=== PATIENT | female | born 1935 | race Caucasian/White ===

== ENCOUNTER 2018-06-03 10:55 | Emergency (ER) | payer MEDICARE, BC ==
--- NOTE | 2018-06-03 11:40 | ED ---
GI/ HPI - HPI Summary HPI Summary: 83F presents with dysuria and hematuria for the past 2 days. She admits to suprapubic pressure. She admits to urgency and frequency. She denies any fevers. No nausea or no vomiting. No flank pain. She does not have a history of kidney stones. She is not on blood thinners. She states she is passing occasional clots. She states she had hematuria back in October and had a full workup for the cystoscope and a CT and they did not find a reason for the bleeding. States at that time she was passing more clots. She states she has not gotten a follow-up with urology for this insistence yet. - History of Current Complaint Chief Complaint: UCGU Time Seen by Provider: 06/03/18 11:22 Stated Complaint: URINARY ISSUE Pain Intensity: 2 - Allergy/Home Medications Allergies/Adverse Reactions: Allergies Allergy/AdvReac Type Severity Reaction Status Date / Time No Known Allergies Allergy Verified 06/03/18 11:12 Home Medications: Home Medications Calcium Carb/Vitamin D3/Vit K1 [Calcium + D Soft Chewable Tab] 1 tab PO DAILY [History Confirmed 06/03/18] Calcium Carbonate [Antacid] 420 mg PO DAILY 06/03/18 [History Confirmed 06/03/18 ] Levothyroxine TAB* [Synthroid 125 MCG TAB*] 1 tab PO DAILY 06/03/18 [History Confirmed 06/03/18] Lisinopril 10 mg PO DAILY 06/03/18 [History Confirmed 06/03/18] Simvastatin TAB(NF) [Zocor 10 MG (NF)] 1 tab PO DAILY 06/03/18 [History Confirmed 06/03/18] PMH/Surg Hx/FS Hx/Imm Hx Endocrine/Hematology History: Reports: Hx Thyroid Disease - on meds Respiratory History: Reports: Other Respiratory Problems/Disorders - TB resolved - Cancer History Cancer Type, Location and Year: breast ca - Surgical History Surgery Procedure, Year, and Place: gallbladder, lung resection for TB. Infectious Disease History: No Infectious Disease History: Denies: Traveled Outside the US in Last 30 Days - Family History Known Family History: Positive: Hypertension - Social History Alcohol Use: None Substance Use Type: Reports: None Smoking Status (MU): Never Smoked Tobacco Review of Systems Negative: Fever Negative: Chest Pain Negative: Shortness Of Breath Positive: Abdominal Pain. Negative: Vomiting, Nausea Positive: dysuria, hematuria. Negative: flank pain All Other Systems Reviewed And Are Negative: Yes Physical Exam Triage Information Reviewed: Yes Vital Signs On Initial Exam: Initial Vitals Temp Pulse Resp BP Pulse Ox 98.7 F 99 18 152/69 100 06/03/18 11:08 06/03/18 11:08 06/03/18 11:08 06/03/18 11:08 06/03/18 11:08 Vital Signs Reviewed: Yes Appearance: Positive: Well-Appearing Skin: Positive: Warm, Dry Head/Face: Positive: Normal Head/Face Inspection Eyes: Positive: Normal, Conjunctiva Clear ENT: Positive: Pharynx normal Respiratory/Lung Sounds: Positive: Clear to Auscultation, Breath Sounds Present Cardiovascular: Positive: Normal, RRR Abdomen Description: Positive: Nontender, Soft. Negative: CVA Tenderness (R), CVA Tenderness (L) Bowel Sounds: Positive: Present Musculoskeletal: Positive: Normal Neurological: Positive: Normal Psychiatric: Positive: Normal Diagnostics - Vital Signs Vital Signs Temp Pulse Resp BP Pulse Ox 06/03/18 11:08 98.7 F 99 18 152/69 100 - Laboratory Lab Results: Lab Results 06/03/18 Range/Units 11:28 POC Urine Color Shah[place] POC Urine Clarity Slightly cloudy POC Urine pH 6.0 (5-9) POC Ur Specif [place] <= 1.005 L (1.010-1.030) POC Urine Protein Trace A (Negative) POC Ur Glucose (UA) Negative (Negative) POC Urine Ketones Negative (Negative) POC Urine Blood 3+ A (Negative) POC Urine Nitrite Negative (Negative) POC Urine Bilirubin Negative (Negative) POC Urine Urobilinogen 0.2 (Negative) POC U Leukocyte Esteras 1+ A (Negative) Lab Statement: Any lab studies that have been ordered have been reviewed, and results considered in the medical decision making process. GIGU Course/Dx - Course Course Of Treatment: 83F presents with dysuria and hematuria for the past 2 days. She admits to suprapubic pressure. She admits to urgency and frequency. She denies any fevers. No nausea or no vomiting. No flank pain. She does not have a history of kidney stones. She is not on blood thinners. She states she is passing occasional clots. She states she had hematuria back in October and had a full workup for the cystoscope and a CT and they did not find a reason for the bleeding. States at that time she was passing more clots. She states she has not gotten a follow-up with urology for this insistence. On exam nontender abdomen. no CVA tenderness. Urine shows a UTI. We'll place on Cipro. We'll have follow-up with urology about blood in urine. will have follow up with primary about blood pressure as is elevated at this time. Patient understands agrees the plan. - Diagnoses Differential Diagnoses - Female: Pyelonephritis, Urinary Tract Infection, Ureteral Calculi Provider Diagnoses: UTI (urinary tract infection), Hematuria Discharge - Sign-Out/Discharge Documenting (check all that apply): Patient Departure - Discharge Plan Condition: Good Disposition: HOME Prescriptions: Ciprofloxacin TAB* [Cipro 500 MG TAB*] 500 mg PO BID #10 tab Patient Education Materials: Urinary Tract Infection in Women (ED) Referrals: Daniel Strickland MD [Primary Care Provider] - Enzo Silva MD [Medical Doctor] - Additional Instructions: Take Cipro twice a day for 5 days Follow up with urology about blood in urine follow up with primary about blood pressure as is elevated at this time. Return to ED if develop fever, flank pain, abdominal pain, vomiting or any new or worsening symptoms - Billing Disposition and Condition Condition: GOOD Disposition: Home
--- NOTE | 2018-06-04 16:27 | UC ---
- Progress Note Progress Note: Treated with cipro for UTI, but culture is negative. Urine sample had 3+ blood. Please ensure that she has a follow up urine sample assessed by her PMD because of the blood in the urine. Course/Dx - Diagnoses Provider Diagnoses: UTI (urinary tract infection), Hematuria Discharge - Sign-Out/Discharge Documenting (check all that apply): Patient Departure - Discharge Plan Condition: Good Disposition: HOME Prescriptions: Ciprofloxacin TAB* [Cipro 500 MG TAB*] 500 mg PO BID #10 tab Patient Education Materials: Urinary Tract Infection in Women (ED) Referrals: Daniel Strickland MD [Primary Care Provider] - Enzo Silva MD [Medical Doctor] - Additional Instructions: Take Cipro twice a day for 5 days Follow up with urology about blood in urine follow up with primary about blood pressure as is elevated at this time. Return to ED if develop fever, flank pain, abdominal pain, vomiting or any new or worsening symptoms - Billing Disposition and Condition Condition: GOOD Disposition: Home
== END 2018-06-03 11:55 | disposition home or self-care (01) ==
LOC: UCEAST 10:55
DX: N39.0 Urinary tract infection, site not specified (principal); R31.9 Hematuria, unspecified; E07.9 Disorder of thyroid, unspecified; R03.0 Elevated blood-pressure reading, without diagnosis of hypertension
CPT/HCPCS: 81003; 87086; 99202; G0463

== ENCOUNTER 2019-03-23 18:15 | Inpatient (IN) | payer MEDICARE, BC ==
--- OUTSIDE RECORDS SUMMARY | 2019-03-23 18:36 | XMS REPORT | Continuity of Care Document ---
:1935 External Reference #:[id number] Author Name Chava Ríos M.D. Address [address] [facility] [place] [address] Care Team Providers Name Role Phone Daniel Strickland M.D. Primary Care Physician Unavailable Payers Date Identification Numbers Payment Provider Subscriber Policy Number: [id number] Medicare - [place] Michelle Ring PayID: [id number] [facility] [address] [place] [address] Policy Number: [id number] [facility] Michelle Ring PayID: [id number] [place] [address] Advance Directives Description No Information Available Problems Active Problems Provider Date Rosacea Onset: H/O: tuberculosis Onset: Gastroesophageal reflux disease Onset: Hypothyroidism Onset: Essential hypertension Onset: Arthritis Onset: Hypercholesterolemia Onset: 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 Onset: 02/27 degeneration Presence of intraocular lens Chava Ríos M.D. Onset: 02/27/2016 Vitreous degeneration Chava Ríos M.D. Onset: 02/27/2016 Nonexudative age-related macular degeneration Chava Ríos M.D. Onset: Family History Date Family Member(s) Observation Comments Father No Current Problems Mother No Current Problems Social History Type Date Description Comments Sex Unknown Marital Status Legal Status: Occupation [employer] Work Status Part-Time Employment ETOH Use Denies alcohol use Tobacco Use Start: Unknown Patient has never smoked Recreational Drug Use Denies Drug Use Smoking Status Reviewed: 03/11/19 Patient has never smoked Allergies, Adverse Reactions, Alerts Active Allergies Reaction Severity Comments Date Pneumovax 11/27/2015 Medications Active Medications SIG Qnty Indications Ordering Provider Date Preservision Areds 2 1 cap by mouth Chava Ríos, 03/02/2018 Areds twice a day M.D. 2 Capsules Aspir-[address] Calcium + D3 Unknown [id number] Tablets Levothyroxine Sodium Unknown 125mcg Tablets Rosuvastatin Calcium Take One Tablet Unknown 10mg By Mouth Every Tablets Day Omeprazole Unknown 20mg Capsules DR Lisinopril Take One Tablet Unknown 10mg Tablets By Mouth Every Day Immunizations Description No Information Available Vital Signs Description No Information Available Results Description No Information Available Procedures Date Code Description Status 03/02/2018 99144 Scanning Computerized Opthalmic Diagnostic Posterior Seg Completed Retina 03/02/2018 48900 Est Patient Comprehensive Exam Completed 02/27/2017 68995 Scanning Computerized Opthalmic Diagnostic Posterior Seg Completed Retina 02/27/2017 14984 Determination Of Refractive State Completed 02/27/2017 75779 Est Patient Comprehensive Exam Completed 02/27/2016 94514 Fundus Photography With Interpretation And Report Completed 02/27/2016 84485 Est Patient Comprehensive Exam Completed 10/01/2013 510 Eye Scrubs 30 Count Completed 09/17/2013 57776 Scanning Computerized Opthalmic Diagnostic Posterior Seg Completed Retina 09/17/2013 03684 Determination Of Refractive State Completed 09/17/2013 43938 Est Patient Comprehensive Exam Completed 08/05/2011 24187 Est Patient Intermediate Exam Completed 06/27/2009 519 Eyeglass Trim Master Operator Completed 06/27/2009 48030 Est Patient Comprehensive Exam Completed 06/27/2009 29269 Determination Of Refractive State Completed 08/05/2007 87114 Extracapsular Cataract Extraction W/Intraocular Lens Completed 07/30/2007 60147 Ophthalmic Biometry Completed 07/29/2007 62519 Extracapsular Cataract Extraction W/Intraocular Lens Completed 07/20/2007 35950 Ophthalmic Biometry Completed 05/19/2007 50091 Est Patient Comprehensive Exam Completed 04/01/2006 21331 Determination Of Refractive State Completed 04/01/2006 66326 Est Patient Comprehensive Exam Completed 12/04/2005 07617 Est Patient Intermediate Exam Completed 03/27/2005 77322 Determination Of Refractive State Completed 03/27/2005 57492 Est Patient Comprehensive Exam Completed 01/15/2005 21594 Rescheduled Appointment Completed 01/08/2005 85057 New Patient Intermediate Exam Completed Encounters Type Date Location Provider Dx Diagnosis Office Visit 10/01/2013 Elsa Tee 372.20 Blepharoconjunctivitis 11:30a MD [place], josesito O.DNik Unspec Office Visit 01/14/2005 Chava Kincaid 373.00 Blepharitis Unspec 9:30a MD [place], josesito Mendez O.D. Plan of Treatment 03/11/2019 - Chava Ríos M.D.[id number] Nonexudative age-related macular degeneration, bilateral, intermediate dry stageComments:Smoking can increase the risk of developing or worsening any eye related disease, as well as affect your overall health. If you are a smoker, we strongly recommend that you quit.If you are not a smoker, we strongly recommend that you do not start. You have Macular Degeneration. Check your Amsler Grid, with each eye separately, and take the AREDS II formula vitamins. If you notice any changes in your vision , please call the office and schedule an appointment to see any of the doctors here.Follow up:1 Year Follow Up Diagnostic Refraction OCT MAC You can expect to have your eyes dilated at your next visit. If Dr. Ríos orders any additional testing, it may require extra time. We recommend that youbring sunglasses, as dilation drops often make you light sensitive until they wear off. We always recommend you bring someone to drive you home if you are uncomfortable driving with your eyes dilated. If you have any questions before your next visit, feel free to call our office at .[phone] Vitreous degeneration, bilateralComments:You have a Posterior Vitreous Detachment. If you have any changes in your floaters or flashing lights, please contact this office.Z96.1 Presence of intraocular lensComments:The artificial lens implants in both eyes appear to be stable at this time.
--- NOTE | 2019-03-23 18:58 | ED ---
GI/ HPI - HPI Summary HPI Summary: Patient is a 84 y/o F presenting to ED with complaints of diarrhea and nausea for the past two weeks. Patient states that she was seen at [facility] two days ago, abdomen x-ray was done, and patient was discharged to home after being hydrated. However, Sx have persistent. She reports that she experiences around 8 episodes of diarrhea daily, describing them as watery. She denies vomiting, abdominal pain, and bloody stools. Patient does note experiencing, "a lot of gurgling", recent weight loss, and decreased appetite. She states she felt chilled last night as well. No Hx of GI issues, patient has had cholecystectomy but otherwise denies abdominal surgeries. She denies Hx of colitis, irritable bowel syndrome, recent travel in the past few months, no recent new antibiotics. Patient notes that she has colonoscopy scheduled. Patient takes medications for HTN, thyroid disease, and HLD. Hx of breast cancer. Patient has never smoked tobacco, denies alcohol and substance usage. She states that her son lives with her and claims that he has been having similar Sx. On triage, pain is denied, it is noted that drinking a lot of fluids aggravates Sx, nothing is noted to alleviate Sx. Home medications and allergies are reviewed. Daughter is present in the room. - History of Current Complaint Chief Complaint: EDNauseaVomitDiarrh Time Seen by Provider: 03/23/19 18:49 Stated Complaint: DIARRHEA/NAUSEA PER PT Hx Obtained From: Patient Onset/Duration: Started Days Ago - chills last night, Started Weeks Ago - two weeks ago, Still Present Timing: Constant - patient reports 8 episodes of diarrhea daily, Lasting Days - chills last night, Lasting Weeks - two weeks ago Current Severity: None - pain denied Pain Intensity: 0 Associated Signs and Symptoms: Positive: Nausea, Diarrhea, Change in Appetite - decreased, Chills, Other: - recent weight loss, experiencing "a lot of gurgling ". Negative: Vomiting, Blood w/Stool, Abdominal Pain Aggravating Factor(s): Liquids Alleviating Factor(s): Nothing - Allergy/Home Medications Allergies/Adverse Reactions: Allergies Allergy/AdvReac Type Severity Reaction Status Date / Time No Known Allergies Allergy Verified 03/23/19 19:07 PMH/Surg Hx/FS Hx/Imm Hx Endocrine/Hematology History: Reports: Hx Thyroid Disease - on meds Cardiovascular History: Reports: Hx Hypertension Respiratory History: Reports: Other Respiratory Problems/Disorders - TB resolved - Cancer History Cancer Type, Location and Year: breast ca - Surgical History Surgery Procedure, Year, and Place: gallbladder, lung resection for TB. Infectious Disease History: No Infectious Disease History: Denies: Traveled Outside the [place] in Last 30 Days - Family History Known Family History: Positive: Hypertension - Social History Alcohol Use: None Substance Use Type: Reports: None Smoking Status (MU): Never Smoked Tobacco Review of Systems Constitutional: Other - POSITIVE - RECENT WEIGHT LOSS Positive: Chills Gastrointestinal: Other - POSITIVE - DECREASED APPETITE, "A LOT OF GURGLING" Positive: Diarrhea, Nausea. Negative: Abdominal Pain, Vomiting Genitourinary: Other - NEGATIVE - BLOOD IN STOOLS All Other Systems Reviewed And Are Negative: Yes Physical Exam - Summary Physical Exam Summary: Appearance: Well-appearing, Well-nourished, lying in bed comfortably Skin: Warm, dry, no obvious rash Eyes: sclera anicteric, no conjunctival pallor ENT: mucous membranes moist, pharynx appears normal Neck: Supple, nontender Respiratory: Clear to auscultation, no signs of respiratory distress Cardiovascular: Normal S1, S2. No murmurs. Normal distal pulses in tibial and radial bilaterally. Abdomen: Soft, nontender, normal active bowel sounds present Musculoskeletal: Normal, Strength/ROM Intact Neurological: A&Ox3, awake and alert, mentation is normal, speech is fluent and appropriate Psychiatric: affect is normal, does not appear anxious or depressed Triage Information Reviewed: Yes Vital Signs On Initial Exam: Initial Vitals Temp Pulse Resp BP Pulse Ox 97.1 F 75 18 111/61 98 03/23/19 18:18 03/23/19 18:18 03/23/19 18:18 03/23/19 18:18 03/23/19 18:18 Vital Signs Reviewed: Yes Diagnostics - Vital Signs Vital Signs Temp Pulse Resp BP Pulse Ox 03/23/19 18:18 97.1 F 75 18 111/61 98 - Laboratory Result Diagrams: 03/24/19 05:11 03/24/19 05:11 Lab Statement: Any lab studies that have been ordered have been reviewed, and results considered in the medical decision making process. - EKG 1943 Cardiac Rate: NL - rate of 74 BPM EKG Rhythm: Sinus Rhythm Summary of EKG Findings: EKG showed sinus rhythm with rate of 74 BPM, LBBB, no iscehmic changes. GIGU Course/Dx - Course Course Of Treatment: Patient is a 84 y/o F presenting to ED with complaints of diarrhea and nausea for the past two weeks. Patient states that she was seen at [facility] two days ago, abdomen x-ray was done, and patient was discharged to home after being hydrated. However, Sx have persistent. She reports that she experiences around 8 episodes of diarrhea daily, describing them as watery. She denies vomiting, abdominal pain, and bloody stools. Patient does note experiencing, "a lot of gurgling", recent weight loss, and decreased appetite. She states she felt chilled last night as well. No Hx of GI issues, patient has had cholecystectomy but otherwise denies abdominal surgeries. She denies Hx of colitis, irritable bowel syndrome, recent travel in the past few months, no recent new antibiotics. Patient notes that she has colonoscopy scheduled. Physical exam is normal. Labs showed WBC 15.5, MCH 32, absolute neuts 9.8, absolute monos 2.1, sodium 132, potassium 3, carbon dioxide 19, BUN 25, creatinine 1.57, glucose 105, lactic acid 1.1, CRP 83.84. EKG showed sinus rhythm with rate of 74 BPM, LBBB, no iscehmic changes. During ED course, patient received fluids, Klor Con Er Tab 40 meq PO ED ONCE ONE, Lomotil 2 tab PO ED ONCE ONE. Patient's case was discussed with Dr. Luna, Dr. Luna accepts the patient for admission. - Diagnoses Provider Diagnoses: Dehydration, Diarrhea, Acute renal insufficiency - Physician Notifications Discussed Care Of Patient With: Martín Luna Time Discussed With Above Provider: 21:40 Instructed by Provider To: Other - Patient's case was discussed with Dr. Luna , Dr. Luna accepts the patient for admission. Discharge - Sign-Out/Discharge Documenting (check all that apply): Patient Departure - admit Patient Received Moderate/Deep Sedation with Procedure: No - Discharge Plan Condition: Stable Disposition: ADMITTED TO [facility] - Billing Disposition and Condition Condition: STABLE Disposition: Admitted to [facility] - Attestation Statements Document Initiated by Scribe: Yes Documenting Scribe: APURVA HALL Provider For Whom Scribe is Documenting (Include Credential): NIKKI PRIDE MD Scribe Attestation: I, APURVA HALL, scribed for NIKKI PRIDE MD on 03/24/19 at 1024. Scribe Documentation Reviewed: Yes Provider Attestation: The documentation as recorded by the [email or web address] accurately reflects the service I personally performed and the decisions made by me, NIKKI PRIDE MD Status of Scribe Document: Viewed
[2019-03-23] MEDS ORDERED: NS 0.9% 1000 ML** 2,000 ML IV ONE (19:00)
[2019-03-23 19:22] LABS: Hematocrit 45 % (35-47); Hemoglobin 15.1 g/dL (12.0-16.0); Mean Corpuscular HGB Conc 34 g/dL (31-36); Mean Corpuscular Hemoglobin 32 pg (27-31); Mean Corpuscular Volume 94 fL (80-97); Mean Platelet Volume 8.9 fL (7.4-10.4); Platelet Count 267 10^3/uL (150-450); Red Blood Count 4.76 10^6 /uL (3.70-4.87); Red Cell Distribution Width 13 % (10.5-15); White Blood Count 15.5 10^3/uL (3.5-10.8)
[2019-03-23 19:39] LABS: Albumin 4.1 g/dL (3.2-5.2); Albumin/Globulin Ratio 1.2 (1-3); BUN/Creatinine Ratio 15.9 (8-20); C Reactive Protein 83.84 mg/L (<8.01); Calcium 9.4 mg/dL (8.6-10.3); EGFR Non-African American 31.4 (>60); Globulin 3.3 g/dL (2-4); Total Bilirubin 0.7 mg/dL (0.2-1.0); Total Protein 7.4 g/dL (6.4-8.9)
[2019-03-23 20:02] LABS: ABS Eosinophils 0.2 10^3/ul (0-0.6); ABS Lymphocytes 3.3 10^3/ul (1.0-4.8); ABS Monocytes 2.1 10^3/ul (0-0.8); ABS Neutrophils 9.8 10^3/ul (1.5-7.7); Eosinophil % 1.4 %; Lymphocyte % 21.3 %; Nucleated Red Blood Cells % 0.1
[2019-03-23] MEDS ORDERED: Potassium Chlor TAB* 20 MEQ TAB.ER PO ONE (20:46)
[2019-03-23] MEDS ORDERED: Diphenoxylat/Atrop 2.5-0.025M* 1 TAB PO ONE (20:47)
[2019-03-23 23:49] LABS: Urine Appearance Cloudy; Urine Bacteria 1+ (Absent); Urine Bilirubin Negative (Negative); Urine Blood Negative (Negative); Urine Color Yellow; Urine Glucose Negative (Negative); Urine Ketones 1+ (Negative); Urine Nitrite Negative (Negative); Urine Protein 1+(30 mg/dL) (Negative); Urine Red Blood Cell Absent (Absent); Urine Specific Gravity 1.019 (1.010-1.030); Urine Squamous Epithelial Cell Present (Absent); Urine Urobilinogen Negative (Negative); Urine White Blood Cell 3+(>20/hpf) (Absent)
[2019-03-24] MEDS ORDERED: Lactated Ringers 1000 ML Bag* 1,000 ML IV ONE (00:14)
--- NOTE | 2019-03-24 01:02 | HP ---
HISTORY AND PHYSICAL: ADDENDUM: PHYSICAL EXAMINATION GENERAL: Well-appearing woman, sitting 45 degrees in bed, interactive, in no apparent distress. HEENT: Oropharynx is clear. She has dry mucous membranes. Her sclerae are anicteric. She has no supraclavicular or cervical lymphadenopathy. LUNGS: Her lungs are clear to auscultation. HEART: Regular rate and rhythm. No murmurs, rubs, or gallops. ABDOMEN: Her abdomen is soft, nontender. Positive bowel sounds in all 4 quadrants. She does have slight firmness in the suprapubic area, periumbilical ; but no tenderness, no rebound, and no distention. EXTREMITIES: Warm and well perfused without clubbing, cyanosis, or edema. NEUROLOGICAL: She is alert and oriented x3. Her cranial nerves II through XII are intact. She has no apparent anxiety, agitation, or depression. [id number]/[facility] #: [id number] MTDD
--- NOTE | 2019-03-24 02:57 | HP ---
ADDENDUM NOW INCLUDED ON THIS REPORT CC: Dr. Strickland * ADMISSION HISTORY AND PHYSICAL: DATE OF ADMISSION: 03/23/19 PRIMARY CARE PROVIDER: Dr. Strickland. HEALTHCARE PROXY: Her daughter, Licha. CODE STATUS: Full. SOURCE OF INFORMATION: History obtained from interview with the patient and review of most recent records from [place]. RELIABILITY: Good. CHIEF COMPLAINT: Diarrhea. HISTORY OF PRESENT ILLNESS: This is an 84-year-old female, who has had 2 weeks of diarrhea that has been intermittent, but gradually worse and "all the time over the last one week." Over the last week, there has been up to 8 bowel movements per day. Many times these are close together. She denies any pain, but endorses a gurgling sensation in her bowels. No blood, no mucus, but the stools are very watery. She endorses decreased appetite and intake and has not been eating much. She denies any vomiting, but does have occasional nausea. The diarrhea does wake her up overnight. She was seen in the emergency room in [place] on 03/21/19. She was seen in [facility] Emergency Room on 03/21/19, at which time it was noted she was unable to produce a stool sample. Her nausea was controlled. She received fluid and Zofran, was discharged home at that time. The diarrhea has continued and for that reason she presented to the emergency room today. Of note, her son has had the similar symptoms with persistent diarrhea for the 1 week prior to presentation today. Also, of note the patient was scheduled for a colonoscopy tomorrow at [place] secondary to changes in her stool caliber. In the emergency room today, she received two Lomotil, potassium, and fluid and her diarrhea has been improved. Also, of note her son's presentation, had included more vomiting. PAST MEDICAL HISTORY: Includes: 1. Hypertension. 2. Hypothyroidism. 3. Hyperlipidemia. 4. History of breast cancer. 5. 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 6. Left bundle branch block. 7. Chronic knee pain. 8. Cholecystectomy. 9. Right partial mastectomy. 10. Lung wedge resection. MEDICATIONS: Home medications include: 1. Synthroid 125 mcg per day. 2. Simvastatin 10 mg daily. 3. Lisinopril 10 mg daily. 4. Calcium carbonate 420 mg daily. 5. Calcium with vitamin D combination tab 1 tab daily. ALLERGIES: No known drug allergies. FAMILY HISTORY: Father with CHF, daughter with breast cancer. SOCIAL HISTORY: Lives with her son. No tobacco, alcohol or illicits. REVIEW OF SYSTEMS: As per HPI, otherwise all other systems negative. PHYSICAL EXAMINATION VITAL SIGNS: In the emergency room, 113/54, heart rate 68, respiratory rate is 19, and 96% on room air. T-max 97.1. DIAGNOSTIC STUDIES/LAB DATA: Laboratory data reviewed. Potassium 3.0, BUN 25 , creatinine 1.57. CRP is 83. White blood cell count is 15.5, which is 62% neutrophils, hemoglobin 15.1, platelets 267. Of note, notable labs from [facility] on 03/21/19 include white blood cell count of 11.5, potassium of 3.3, BUN of 14 , and creatinine is 0.7 as well as a lipase of 301. Data reviewed: EKG left bundle-branch block known. X-ray abdomen series with [facility] from [facility] nonspecific bowel gas pattern. No definite evidence for acute cardiopulmonary disease on that impression. ASSESSMENT AND PLAN: This is an 84-year-old female with two weeks of progressively worse watery diarrhea waking her from her sleep in the setting of son with recent illness down with leukocytosis as well as acute kidney injury, worsening over the last 3 days. 1. Diarrhea associated with hypokalemia, fluids. Improved with Lomotil. Was planned for colonoscopy, will now be postponed. Monitor in the hospital. We will check CT abdomen and pelvis without contrast for further imaging and evaluation. Further plan dictated by these findings. Suspect viral in the setting of son with similar symptoms, elevated CRP and white blood cell count, which is non- neutrophilic. No antibiotics at this time unless otherwise indicated by CAT scan. 2. Acute kidney injury. Received 2 L in the emergency room. Continue another liter of lactated Ringer's at 100 cc per hour. 3. Hypokalemia. Received potassium in the emergency room. Received some additional potassium from lactated Ringers. Check in the morning. 4. Hypertension. Continue home medications. 5. Hypothyroidism. Continue home medications. 6. Hyperlipidemia. Continue home medications. 7. DVT prophylaxis. Heparin subcu in the setting of acute kidney injury. 8. Code status is full code. ADDENDUM: PHYSICAL EXAMINATION GENERAL: Well-appearing woman, sitting 45 degrees in bed, interactive, in no apparent distress. HEENT: Oropharynx is clear. She has dry mucous membranes. Her sclerae are anicteric. She has no supraclavicular or cervical lymphadenopathy. LUNGS: Her lungs are clear to auscultation. HEART: Regular rate and rhythm. No murmurs, rubs, or gallops. ABDOMEN: Her abdomen is soft, nontender. Positive bowel sounds in all 4 quadrants. She does have slight firmness in the suprapubic area, periumbilical ; but no tenderness, no rebound, and no distention. EXTREMITIES: Warm and well perfused without clubbing, cyanosis, or edema. NEUROLOGICAL: She is alert and oriented x3. Her cranial nerves II through XII are intact. She has no apparent anxiety, agitation, or depression. [id number]/CPS #: [id number]/[id number] #: [id number] [facility]
[2019-03-24] MEDS: Heparin VIAL(*) 5000 UNITS/ML VIAL (FIVE THOUSAND) SUBCUT SCH ×3 (05:11→22:13)
[2019-03-24] MEDS: Levothyroxine TAB* 125 MCG TAB PO SCH (05:11)
[2019-03-24 05:49] LABS: Hematocrit 39 % (35-47); Hemoglobin 13.2 g/dL (12.0-16.0); Mean Corpuscular HGB Conc 34 g/dL (31-36); Mean Corpuscular Hemoglobin 32 pg (27-31); Mean Corpuscular Volume 93 fL (80-97); Mean Platelet Volume 10.4 fL (7.4-10.4); Platelet Count 226 10^3/uL (150-450); Red Blood Count 4.19 10^6 /uL (3.70-4.87); Red Cell Distribution Width 14 % (10.5-15); White Blood Count 13.2 10^3/uL (3.5-10.8)
[2019-03-24 06:10] LABS: BUN/Creatinine Ratio 19.8 (8-20); Calcium 8.1 mg/dL (8.6-10.3); EGFR African American 63.2 (>60); EGFR Non-African American 52.2 (>60); Potassium 2.9 mmol/L (3.5-5.0)
[2019-03-24 06:19] LABS: ABS Basophils 0.1 10^3/ul (0-0.2); ABS Eosinophils 0.5 10^3/ul (0-0.6); ABS Lymphocytes 3.1 10^3/ul (1.0-4.8); ABS Monocytes 1.7 10^3/ul (0-0.8); ABS Neutrophils 7.9 10^3/ul (1.5-7.7); Eosinophil % 3.8 %; Lymphocyte % 23.4 %
[2019-03-24] MEDS ORDERED: Potassium Chlor TAB* 20 MEQ TAB.ER PO ONE (08:23)
[2019-03-24] MEDS ORDERED: Lisinopril TAB* 10 MG PO SCH (09:00)
[2019-03-24] MEDS: Atorvastatin* 10 MG TAB PO SCH (09:15)
[2019-03-24 13:56] LABS: Magnesium 1.7 mg/dL (1.9-2.7)
[2019-03-24] MEDS ORDERED: Magnesium Sulfate 2 GM IV* 2 GM/50 ML BAG IVPB ONE (14:42)
[2019-03-24] MEDS ORDERED: NS 0.9% 1000 ML** 1,000 ML IV SCH (14:45)
[2019-03-24] MEDS: KCL 20 MEQ/100 ML IVPREMIX* 20 MEQ/100 ML BAG IV SCH ×2 (15:44→22:13)
--- NOTE | 2019-03-24 20:22 | PN ---
Subjective Date of Service: 03/24/19 Interval History: Continues to c/o nausea and diarrhea. was able to tolerate breakfast this AM. Denies chest pain or shortness of breath. denies abd pain or tenderness. denies fever or chills Family History: Unchanged from Admission Social History: Unchanged from Admission Past Medical History: Unchanged from Admission Objective Active Medications: Acetaminophen (Tylenol Tab*) 650 mg PO Q4H PRN PRN Reason: FEVER/PAIN Atorvastatin Calcium (Lipitor*) 5 mg PO DAILY [facility] Last Admin: 03/24/19 09:15 Dose: 5 mg Diphenoxylate HCl/Atropine (Lomotil Tab*) 1 tab PO BID PRN PRN Reason: DIARRHEA Heparin Sodium (Porcine) (Heparin Vial(*)) 5,000 units SUBCUT Q8HR [facility] Last Admin: 03/24/19 15:45 Dose: 5,000 units Sodium Chloride (Ns 0.9% 1000 Ml) 1,000 mls @ 75 mls/hr IV PER RATE [facility] Stop: 03/25/19 04:04 Last Admin: 03/24/19 15:45 Dose: 75 mls/hr Levothyroxine Sodium (Synthroid Tab*) 125 mcg PO 0600 [facility] Last Admin: 03/24/19 05:11 Dose: 125 mcg Lisinopril (Prinivil Tab*) 10 mg PO DAILY [facility] Last Admin: 03/24/19 09:14 Dose: 10 mg Ondansetron HCl (Zofran Inj*) 4 mg IV Q4H PRN PRN Reason: NAUSEA/VOMITING Vital Signs - 8 hr 03/24/19 03/24/19 16:08 19:23 Temperature 97.5 F 98.2 F Pulse Rate 70 69 Respiratory 20 20 Rate Blood Pressure 119/50 91/38 (mmHg) O2 Sat by Pulse 99 99 Oximetry Oxygen Devices in Use Now: None Appearance: alert, resting in bed , no acute distress Eyes: No Scleral Icterus Ears/Nose/Mouth/Throat: Clear Oropharnyx, Mucous Membranes Moist Neck: NL Appearance and Movements; NL JVP, Trachea Midline Respiratory: Symmetrical Chest Expansion and Respiratory Effort, Clear to Auscultation Cardiovascular: NL Sounds; No Murmurs; No JVD, No Edema Abdominal: NL Sounds; No Tenderness; No Distention Extremities: No Edema, No Clubbing, Cyanosis Skin: No Rash or Ulcers Neurological: Alert and Oriented x 3 Nutrition: Taking PO's Result Diagrams: 03/24/19 05:11 03/24/19 05:11 Microbiology and Other Data: Microbiology 03/23/19 20:04 Stool Gross Appearance - Final Stool C. difficile DNA Amplification - Final 027 Presumptive NEGATIVE Toxigenic C.diff NEGATIVE 03/23/19 20:04 Stool Occult Blood (MARITZA) - Final Stool Assess/Plan/Problems-Billing Assessment: ms reddy is a 84 y.o female that was admitted for diarrhea and - Patient Problems (1) Diarrhea Current Visit: Yes Status: Acute Code(s): R19.7 - DIARRHEA, UNSPECIFIED SNOMED Code(s): 88068220 Comment: - continues to c/o diarrhea - 3 episodes doumented today thus far -stool cultures ordered - suspect this could be viral and son who lives with the patient has recently had simular symptoms (2) Hypokalemia Current Visit: Yes Status: Acute Code(s): E87.6 - HYPOKALEMIA SNOMED Code( s): 27208048 Comment: suspect this is related to diarrhea replaced will repeat bmp in the AM (3) Hypomagnesemia Current Visit: Yes Status: Acute Code(s): E83.42 - HYPOMAGNESEMIA SNOMED Code(s): 682026165 Comment: suspect this is related to diarrhea will replace and repeat level in the AM (4) HTN (hypertension) Current Visit: Yes Status: Acute Code(s): I10 - ESSENTIAL (PRIMARY) HYPERTENSION SNOMED Code(s): 81694259 Comment: going to stop lisinpril do to low normal sbp and continued diarrhea - will resume when status improves (5) Hypothyroid Current Visit: Yes Status: Acute Code(s): E03.9 - HYPOTHYROIDISM, UNSPECIFIED SNOMED Code(s): 77051158 Comment: continue home medications (6) Acute kidney injury Current Visit: Yes Status: Acute Code(s): N17.9 - ACUTE KIDNEY FAILURE, UNSPECIFIED SNOMED Code(s): 71591227 Comment: resolving suspect thisis related to dehydration from diarrhea - IVF given and bun/ creatinine returning to baseline (7) DVT prophylaxis Current Visit: Yes Status: Acute Code(s): Z29.9 - ENCOUNTER FOR PROPHYLACTIC MEASURES, UNSPECIFIED SNOMED Code(s): 553338548 Comment: hsq (8) Full code status Current Visit: Yes Status: Acute Code(s): Z78.9 - OTHER SPECIFIED HEALTH STATUS SNOMED Code(s): 090173559 Status and Disposition: discharge home when medically stable
[2019-03-24] MEDS: Acetaminophen TAB* 325 MG PO PRN (20:26)
[2019-03-24] MEDS: Diphenoxylat/Atrop 2.5-0.025M* 1 TAB PO PRN (20:27)
[2019-03-25] MEDS: Heparin VIAL(*) 5000 UNITS/ML VIAL (FIVE THOUSAND) SUBCUT SCH ×3 (05:19→21:35)
[2019-03-25] MEDS: Levothyroxine TAB* 125 MCG TAB PO SCH (05:20)
[2019-03-25 06:46] LABS: BUN/Creatinine Ratio 15.1 (8-20); Calcium 8.1 mg/dL (8.6-10.3); EGFR African American 91.9 (>60); Magnesium 1.9 mg/dL (1.9-2.7); Potassium 3.6 mmol/L (3.5-5.0)
[2019-03-25] MEDS: Atorvastatin* 10 MG TAB PO SCH (08:43)
[2019-03-25] MEDS ORDERED: Magnesium Oxide TAB* 400 MG PO ONE (12:55)
[2019-03-25] MEDS ORDERED: Potassium Chloride* LIQUID 20 MEQ/15 ML UDC PO ONE (12:55)
[2019-03-25] MEDS ORDERED: cefTRIAXone(*) 1 GM in NS 0.9% 50 ML* 50 ML IVPB SCH (13:00)
--- NOTE | 2019-03-25 18:05 | PN ---
Subjective Date of Service: 03/25/19 Interval History: Continues to have nausea and "burning" in esophagus. Reports she has hx of indigestion like the symptoms she is experiencing now and usually takes TUMS. Denies vomiting. Reports she thinks some of the clear liquids on her tray are aggravating her indigestion. Reports she had a total of 5 stools yesterday and 2 so far this morning. Reports they are still a majority liquid. Denies abd pain unless she feels like she needs to have a BM then she will have some lower abd cramping. Reports son is home with same symptoms and has been having diarrhea for one week. Family History: Unchanged from Admission Social History: Unchanged from Admission Past Medical History: Unchanged from Admission Objective Active Medications: Acetaminophen (Tylenol Tab*) 650 mg PO Q4H PRN PRN Reason: FEVER/PAIN Last Admin: 03/24/19 20:26 Dose: 650 mg Atorvastatin Calcium (Lipitor*) 5 mg PO DAILY [facility] Last Admin: 03/25/19 08:43 Dose: 5 mg Calcium Carbonate (Tums*) 500 mg PO Q4H PRN PRN Reason: INDIGESTION Diphenoxylate HCl/Atropine (Lomotil Tab*) 1 tab PO BID PRN PRN Reason: DIARRHEA Last Admin: 03/24/19 20:27 Dose: 1 tab Heparin Sodium (Porcine) (Heparin Vial(*)) 5,000 units SUBCUT Q8HR [facility] Last Admin: 03/25/19 14:29 Dose: 5,000 units Ceftriaxone Sodium 1 gm/ (Sodium Chloride) 50 mls @ 200 mls/hr IVPB Q24H [facility] Last Admin: 03/25/19 14:28 Dose: 200 mls/hr Levothyroxine Sodium (Synthroid Tab*) 125 mcg PO 0600 [facility] Last Admin: 03/25/19 05:20 Dose: 125 mcg Ondansetron HCl (Zofran Inj*) 4 mg IV Q4H PRN PRN Reason: NAUSEA/VOMITING Vital Signs - 8 hr 03/25/19 15:40 Temperature 98.5 F Pulse Rate 67 Respiratory 24 Rate Blood Pressure 118/49 (mmHg) O2 Sat by Pulse 98 Oximetry Oxygen Devices in Use Now: None Appearance: Comfortable, NAD Eyes: No Scleral Icterus Ears/Nose/Mouth/Throat: Clear Oropharnyx, Mucous Membranes Moist Neck: NL Appearance and Movements; NL JVP Respiratory: Symmetrical Chest Expansion and Respiratory Effort, Clear to Auscultation Cardiovascular: NL Sounds; No Murmurs; No JVD, RRR, No Edema Abdominal: NL Sounds; No Tenderness; No Distention Lymphatic: No Cervical Adenopathy Extremities: No Edema Skin: No Rash or Ulcers Neurological: Alert and Oriented x 3 Nutrition: Taking PO's Result Diagrams: 03/24/19 05:11 03/25/19 06:07 Additional Lab and Data: Laboratory Results - last 24 hr 03/25/19 06:07 Sodium 133 L Potassium 3.6 Chloride 109 Carbon Dioxide 19 L Anion Gap 5 BUN 11 Creatinine 0.73 Est GFR ( Amer) 91.9 Est GFR (Non-Af Amer) 76.0 BUN/Creatinine Ratio 15.1 Glucose 84 Calcium 8.1 L Magnesium 1.9 Microbiology and Other Data: Microbiology 03/23/19 23:37 Urine Culture - Preliminary Urine Escherichia Coli 03/24/19 20:15 Stool Gross Appearance - Final Stool Shiga Toxin I & II - Final Negative Shiga Toxin 1 & 2 03/23/19 20:04 Stool Gross Appearance - Final Stool C. difficile DNA Amplification - Final 027 Presumptive NEGATIVE Toxigenic C.diff NEGATIVE 03/23/19 20:04 Stool Occult Blood (MARITZA) - Final Stool Assess/Plan/Problems-Billing Assessment: ms reddy is a 84 y.o female that was admitted for diarrhea, hypokalemia, and harjit. - Patient Problems (1) Diarrhea Comment: - Continues to c/o diarrhea - 5 episodes yesterday and 2 to 3 so far today. Which is improvement from reported 8 a day on admission - Stool negative for C Diff and Shiga Toxin. Cultures pending. Also negative for blood - Suspect this could be viral and son who lives with the patient has had similar symptoms (2) Indigestion Comment: - TUMS on home med rec, therefore, reordered prn - Diet advanced to soft. (3) Acute kidney injury Comment: - Resolved with IVG - Suspect thisis related to dehydration from diarrhea (4) HTN (hypertension) Comment: - Cont to hold lisinpril due to low normal sbp and continued diarrhea - Resume when status improves (5) Hypokalemia Comment: - Suspect this is related to diarrhea - Replacement provided yesterday and today - Improving. - Repeat bmp in the AM (6) Hypomagnesemia Comment: - Suspect this is related to diarrheaill - Improving with replacement - Repeat level in the AM (7) Hypothyroid Comment: - Cont Synthroid. - TSH added to labs (8) DVT prophylaxis Comment: - SQ Heparin (9) Full code status Status and Disposition: discharge home when medically stable Attending: Olimpia Aparicio
[2019-03-25 18:47] LABS: TSH (Thyroid Stimulating Horm) 36.66 mcIU/mL (0.34-5.60)
[2019-03-25] MEDS: Diphenoxylat/Atrop 2.5-0.025M* 1 TAB PO PRN (21:35)
[2019-03-25] MEDS: Calcium Carbonate CHEW TAB* 500 MG (TUMS) PO PRN (21:35)
[2019-03-26] MEDS: Acetaminophen TAB* 325 MG PO PRN ×2 (03:56→21:12)
[2019-03-26] MEDS: Heparin VIAL(*) 5000 UNITS/ML VIAL (FIVE THOUSAND) SUBCUT SCH ×3 (05:56→21:27)
[2019-03-26] MEDS: Levothyroxine TAB* 125 MCG TAB PO SCH (05:58)
[2019-03-26 06:00] LABS: ABS Basophils 0.1 10^3/ul (0-0.2); ABS Eosinophils 0.4 10^3/ul (0-0.6); ABS Lymphocytes 2.5 10^3/ul (1.0-4.8); ABS Monocytes 1.1 10^3/ul (0-0.8); Eosinophil % 3.5 %; Hematocrit 36 % (35-47); Hemoglobin 12.6 g/dL (12.0-16.0); Lymphocyte % 22.7 %; Mean Corpuscular HGB Conc 35 g/dL (31-36); Mean Corpuscular Hemoglobin 33 pg (27-31); Mean Corpuscular Volume 94 fL (80-97); Mean Platelet Volume 9.3 fL (7.4-10.4); Nucleated Red Blood Cells % 0.1; Platelet Count 246 10^3/uL (150-450); Red Blood Count 3.87 10^6 /uL (3.70-4.87); Red Cell Distribution Width 14 % (10.5-15)
[2019-03-26 06:20] LABS: BUN/Creatinine Ratio 12.5 (8-20); Calcium 8.1 mg/dL (8.6-10.3); EGFR Non-African American 88.4 (>60); Magnesium 1.8 mg/dL (1.9-2.7); Potassium 3.3 mmol/L (3.5-5.0)
[2019-03-26] MEDS ORDERED: Potassium Chlor TAB* 20 MEQ TAB.ER PO ONE (07:20)
[2019-03-26 08:33] LABS: Free T4 0.94 ng/dL (0.61-1.12)
[2019-03-26] MEDS: Magnesium Oxide TAB* 400 MG PO SCH (08:41)
[2019-03-26] MEDS: Atorvastatin* 10 MG TAB PO SCH (08:41)
[2019-03-26] MEDS: Cephalexin CAP* 500 MG PO SCH ×2 (10:30→21:13)
[2019-03-26] MEDS: Calcium Carbonate CHEW TAB* 500 MG (TUMS) PO PRN ×3 (10:30→21:27)
--- NOTE | 2019-03-26 15:37 | PN ---
Subjective Date of Service: 03/26/19 Interval History: Patient reports she continues to have diarrhea but is less frequent and she has noted "stool" in her watery diarrhea. Today she reports some nausea and inability to drink at eat due to nausea. Denies vomiting. Denies fever and chills. Repeats generalized weakness which has been present since symptoms started. Family History: Unchanged from Admission Social History: Unchanged from Admission Past Medical History: Unchanged from Admission Objective Active Medications: Acetaminophen (Tylenol Tab*) 650 mg PO Q4H PRN PRN Reason: FEVER/PAIN Last Admin: 03/26/19 03:56 Dose: 650 mg Atorvastatin Calcium (Lipitor*) 5 mg PO DAILY [facility] Last Admin: 03/26/19 08:41 Dose: 5 mg Calcium Carbonate (Tums*) 500 mg PO Q4H PRN PRN Reason: INDIGESTION Last Admin: 03/26/19 10:30 Dose: 500 mg Cephalexin HCl (Keflex Cap*) 500 mg PO BID [facility] Last Admin: 03/26/19 10:30 Dose: 500 mg Diphenoxylate HCl/Atropine (Lomotil Tab*) 1 tab PO BID PRN PRN Reason: DIARRHEA Last Admin: 03/25/19 21:35 Dose: 1 tab Heparin Sodium (Porcine) (Heparin Vial(*)) 5,000 units SUBCUT Q8HR [facility] Last Admin: 03/26/19 13:44 Dose: 5,000 units Levothyroxine Sodium (Synthroid Tab*) 125 mcg PO 0600 [facility] Last Admin: 03/26/19 05:58 Dose: 125 mcg Magnesium Oxide (Magox 400 Tab*) 400 mg PO DAILY [facility] Last Admin: 03/26/19 08:41 Dose: 400 mg Ondansetron HCl (Zofran Inj*) 4 mg IV Q4H PRN PRN Reason: NAUSEA/VOMITING Vital Signs - 8 hr 03/26/19 03/26/19 08:00 11:03 Temperature 97.3 F Pulse Rate 74 Respiratory 16 17 Rate Blood Pressure 122/51 (mmHg) O2 Sat by Pulse 99 Oximetry Oxygen Devices in Use Now: None Appearance: Comfortable, NAD Eyes: No Scleral Icterus Ears/Nose/Mouth/Throat: Clear Oropharnyx, Mucous Membranes Moist Neck: NL Appearance and Movements; NL JVP Respiratory: Symmetrical Chest Expansion and Respiratory Effort, Clear to Auscultation Cardiovascular: NL Sounds; No Murmurs; No JVD, RRR, No Edema Abdominal: NL Sounds; No Tenderness; No Distention Lymphatic: No Cervical Adenopathy Extremities: No Edema Skin: No Rash or Ulcers Neurological: Alert and Oriented x 3, NL Muscle Strength and Tone Nutrition: Taking PO's Result Diagrams: 03/26/19 05:45 03/26/19 05:45 Additional Lab and Data: Laboratory Results - last 24 hr 03/25/19 03/26/19 03/26/19 06:07 05:45 05:45 WBC 11.0 H RBC 3.87 Hgb 12.6 Hct 36 MCV 94 MCH 33 H MCHC 35 RDW 14 Plt Count 246 MPV 9.3 Neut % (Auto) 63.6 Lymph % (Auto) 22.7 Mcdonald % (Auto) 9.6 Eos % (Auto) 3.5 Baso % (Auto) 0.6 Absolute Neuts (auto) 7.0 Absolute Lymphs (auto) 2.5 Absolute Monos (auto) 1.1 H Absolute Eos (auto) 0.4 Absolute Basos (auto) 0.1 Absolute Nucleated RBC 0.0 Nucleated RBC % 0.1 Sodium 133 L 135 Potassium 3.6 3.3 L Chloride 109 110 Carbon Dioxide 19 L 21 L Anion Gap 5 4 BUN 11 8 Creatinine 0.73 0.64 Est GFR ( Amer) 91.9 107.0 Est GFR (Non-Af Amer) 76.0 88.4 BUN/Creatinine Ratio 15.1 12.5 Glucose 84 101 H Calcium 8.1 L 8.1 L Magnesium 1.9 1.8 L TSH 36.66 H Free T4 0.94 Total T3 44 L Microbiology and Other Data: Microbiology 03/24/19 20:15 Stool Stool Culture - Final 03/24/19 20:15 Stool Stool Gross Appearance - Final 03/24/19 20:15 Stool Shiga Toxin I & II - Final Negative Shiga Toxin 1 & 2 03/23/19 23:37 Urine Urine Culture - Final Escherichia Coli Normal Marija 03/23/19 20:04 Stool Stool Gross Appearance - Final 03/23/19 20:04 Stool C. difficile DNA Amplification - Final 027 Presumptive NEGATIVE Toxigenic C.diff NEGATIVE 03/23/19 20:04 Stool Stool Occult Blood (MARITZA) - Final Assess/Plan/Problems-Billing Assessment: ms reddy is a 84 y.o female that was admitted for diarrhea, hypokalemia, and harjit. - Patient Problems (1) Nausea Comment: - Patient reports nausea today and decrease in PO intake - Suspected secondary to viral illness or acid reflux from not taking home PPI - Home PPI restart - Gentle IVF ordered for overnight. - Change diet to bland - Cont Zofran PRN (2) Diarrhea Comment: - Continues to c/o diarrhea but less frequent and signs of more formed stool noted - Stool negative for C Diff and Shiga Toxin. Cultures no growth. Also negative for blood - Suspect this could be viral and son who lives with the patient has had similar symptoms. She reports today that her daughter who visited recently is reporting same symptoms. (3) Indigestion Comment: - TUMS improved indigestion last evening, but she reports this is not the medication she is use to taking therefore patient's pharmacy called, [facility] rec updated, and home medication (omeprazole) ordered. - Diet advanced to soft. (4) Acute kidney injury Comment: - Resolved with IVF - Suspect thisis related to dehydration from diarrhea (5) HTN (hypertension) Comment: - Cont to hold lisinpril due to low normal sbp and continued diarrhea - Resume when status improves (6) Hypokalemia Comment: - Suspect this is related to diarrhea - Replacement provided - Improving. - Repeat bmp in the AM (7) Hypomagnesemia Comment: - Suspect this is related to diarrhea - Improving with replacement - Repeat level in the AM (8) Hypothyroid Comment: - Cont Synthroid. - TSH elevated at 36.66 - Synthroid increased to 150 mcg. Patient will need repeat TSH in 4 to 6 wks with pcp. (9) DVT prophylaxis Comment: - SQ Heparin (10) Full code status Status and Disposition: discharge home when medically stable Attending: Jose Daniel Mauro
[2019-03-26] MEDS: Pantoprazole TAB * 40 MG TAB PO SCH (16:25)
[2019-03-26] MEDS ORDERED: NS 0.9% 1000 ML** 1,000 ML IV SCH (18:15)
[2019-03-26] MEDS: Diphenoxylat/Atrop 2.5-0.025M* 1 TAB PO PRN (23:47)
[2019-03-27] MEDS: Levothyroxine TAB* 150 MCG TAB PO SCH (05:35)
[2019-03-27] MEDS: Heparin VIAL(*) 5000 UNITS/ML VIAL (FIVE THOUSAND) SUBCUT SCH ×3 (05:35→20:05)
[2019-03-27 07:04] LABS: ABS Basophils 0.1 10^3/ul (0-0.2); ABS Eosinophils 0.5 10^3/ul (0-0.6); ABS Lymphocytes 2.7 10^3/ul (1.0-4.8); ABS Neutrophils 4.9 10^3/ul (1.5-7.7); Eosinophil % 5.2 %; Hematocrit 36 % (35-47); Hemoglobin 12.4 g/dL (12.0-16.0); Lymphocyte % 29.8 %; Mean Corpuscular HGB Conc 34 g/dL (31-36); Mean Corpuscular Hemoglobin 32 pg (27-31); Mean Corpuscular Volume 93 fL (80-97); Nucleated Red Blood Cells % 0.1; Platelet Count 216 10^3/uL (150-450); Red Blood Count 3.86 10^6 /uL (3.70-4.87); Red Cell Distribution Width 13 % (10.5-15); White Blood Count 9.2 10^3/uL (3.5-10.8)
[2019-03-27 07:17] LABS: BUN/Creatinine Ratio 12.3 (8-20); Calcium 8.3 mg/dL (8.6-10.3); EGFR African American 122.3 (>60); Magnesium 1.7 mg/dL (1.9-2.7); Potassium 3.3 mmol/L (3.5-5.0)
[2019-03-27] MEDS: Magnesium Oxide TAB* 400 MG PO SCH (08:06)
[2019-03-27] MEDS: Pantoprazole TAB * 40 MG TAB PO SCH (08:06)
[2019-03-27] MEDS: Cephalexin CAP* 500 MG PO SCH ×2 (08:06→20:04)
[2019-03-27] MEDS: Atorvastatin* 10 MG TAB PO SCH (08:06)
[2019-03-27] MEDS: Ondansetron INJ* 2 MG/ML VIAL IV PRN ×2 (09:40→20:05)
[2019-03-27] MEDS ORDERED: Magnesium Sulfate 2 GM IV* 2 GM/50 ML BAG IVPB ONE (11:43)
[2019-03-27] MEDS ORDERED: Potassium Chloride* LIQUID 20 MEQ/15 ML UDC PO ONE (11:43)
[2019-03-27] MEDS: NS 0.9% 1000 ML** 1,000 ML IV SCH (13:07)
--- NOTE | 2019-03-27 16:08 | PN ---
Subjective Date of Service: 03/27/19 Interval History: Resting in bed on assessment. Reports she is unable to eat today as she does not feel like anything tastes good and everything makes her nauseated. Reports even PO fluids are making her nauseated. She denies vomiting. She reports she also continues to have diarrhea which has increase in frequency since yesterday. Reports she does not feel ready to go home as she will not have help as he son has GI illness also. Family History: Unchanged from Admission Social History: Unchanged from Admission Past Medical History: Unchanged from Admission Objective Active Medications: Acetaminophen (Tylenol Tab*) 650 mg PO Q4H PRN PRN Reason: FEVER/PAIN Last Admin: 03/26/19 21:12 Dose: 650 mg Atorvastatin Calcium (Lipitor*) 5 mg PO DAILY [facility] Last Admin: 03/27/19 08:06 Dose: 5 mg Calcium Carbonate (Tums*) 500 mg PO Q4H PRN PRN Reason: INDIGESTION Last Admin: 03/26/19 21:27 Dose: 500 mg Cephalexin HCl (Keflex Cap*) 500 mg PO BID [facility] Last Admin: 03/27/19 08:06 Dose: 500 mg Heparin Sodium (Porcine) (Heparin Vial(*)) 5,000 units SUBCUT Q8HR [facility] Last Admin: 03/27/19 13:06 Dose: 5,000 units Sodium Chloride (Ns 0.9% 1000 Ml) 1,000 mls @ 75 mls/hr IV PER RATE [facility] Last Admin: 03/27/19 13:07 Dose: 75 mls/hr Levothyroxine Sodium (Synthroid Tab*) 150 mcg PO 0600 [facility] Last Admin: 03/27/19 05:35 Dose: 150 mcg Magnesium Oxide (Magox 400 Tab*) 400 mg PO DAILY [facility] Last Admin: 03/27/19 08:06 Dose: 400 mg Ondansetron HCl (Zofran Inj*) 4 mg IV Q4H PRN PRN Reason: NAUSEA/VOMITING Last Admin: 03/27/19 09:40 Dose: 4 mg Pantoprazole Sodium (Protonix Tab*) 40 mg PO DAILY [facility] Last Admin: 03/27/19 08:06 Dose: 40 mg Vital Signs - 8 hr 03/27/19 11:34 Temperature 98.2 F Pulse Rate 68 Respiratory 18 Rate Blood Pressure 112/45 (mmHg) O2 Sat by Pulse 99 Oximetry Oxygen Devices in Use Now: None Appearance: Comfortable, NAD Eyes: No Scleral Icterus Ears/Nose/Mouth/Throat: Clear Oropharnyx, Mucous Membranes Moist Neck: NL Appearance and Movements; NL JVP Respiratory: Symmetrical Chest Expansion and Respiratory Effort, Clear to Auscultation Cardiovascular: NL Sounds; No Murmurs; No JVD, RRR, No Edema Abdominal: NL Sounds; No Tenderness; No Distention Lymphatic: No Cervical Adenopathy Extremities: No Edema Neurological: Alert and Oriented x 3 Nutrition: - - Decrease in oral intake d/t nausea Result Diagrams: 03/27/19 06:41 03/27/19 06:41 Additional Lab and Data: Laboratory Results - last 24 hr 03/27/19 03/27/19 06:41 06:41 WBC 9.2 RBC 3.86 Hgb 12.4 Hct 36 MCV 93 MCH 32 H MCHC 34 RDW 13 Plt Count 216 MPV 10.0 Neut % (Auto) 53.8 Lymph % (Auto) 29.8 [place] % (Auto) 10.5 Eos % (Auto) 5.2 Baso % (Auto) 0.7 Absolute Neuts (auto) 4.9 Absolute Lymphs (auto) 2.7 Absolute Monos (auto) 1.0 H Absolute Eos (auto) 0.5 Absolute Basos (auto) 0.1 Absolute Nucleated RBC 0.0 Nucleated RBC % 0.1 Sodium 135 Potassium 3.3 L Chloride 111 Carbon Dioxide 22 Anion Gap 2 BUN 7 Creatinine 0.57 Est GFR ( Amer) 122.3 Est GFR (Non-Af Amer) 101.0 BUN/Creatinine Ratio 12.3 Glucose 98 Calcium 8.3 L Magnesium 1.7 L Microbiology and Other Data: Microbiology 03/24/19 20:15 Stool Stool Culture - Final 03/24/19 20:15 Stool Stool Gross Appearance - Final 03/24/19 20:15 Stool Shiga Toxin I & II - Final Negative Shiga Toxin 1 & 2 03/23/19 23:37 Urine Urine Culture - Final Escherichia Coli Normal Marija 03/23/19 20:04 Stool Stool Gross Appearance - Final 03/23/19 20:04 Stool C. difficile DNA Amplification - Final 027 Presumptive NEGATIVE Toxigenic C.diff NEGATIVE 03/23/19 20:04 Stool Stool Occult Blood (MARITZA) - Final Assess/Plan/Problems-Billing Assessment: ms reddy is a 84 y.o female that was admitted for diarrhea, hypokalemia, and harjit. - Patient Problems (1) Liquid stool Comment: - Given increase in frequency again of liquid stool and slightly decreased BS, abd xray completed and unremarkable (2) Nausea Comment: - Patient reports nausea today and decrease in PO intake - Suspected secondary to viral illness or acid reflux from not taking home PPI - Home PPI restarted yesterday - Cont gentle IVF - Change diet from soft to clears - Cont Zofran PRN (3) Diarrhea Comment: - Continues to c/o diarrhea which has increased in frequency again - Stool negative for C Diff and Shiga Toxin. Cultures no growth. Also negative for blood - Suspect this could be viral and son who lives with the patient has had similar symptoms. She reports today that her daughter who visited recently is reporting same symptoms. - Changed Lomotil to Immodium - Discussed outpatient GI consult and colonoscopy as she already had scheduled but needed to cancel due to being here. (4) Indigestion Comment: - Cont Omeprazole - TUMS prn - Change diet from soft to clears (5) Acute kidney injury Comment: - Resolved with IVF - Suspect thisis related to dehydration from diarrhea (6) HTN (hypertension) Comment: - Resume lisinpril tomorrow (ordered) (7) Hypokalemia Comment: - Suspect this is related to diarrhea - Replacement provided - Improving. (8) Hypomagnesemia Comment: - Suspect this is related to diarrhea - Improving with replacement (9) Hypothyroid Comment: - Cont Synthroid. - TSH elevated at 36.66 - Synthroid increased to 150 mcg. Patient will need repeat TSH in 4 to 6 wks with pcp. (10) DVT prophylaxis Comment: - SQ Heparin (11) Full code status Status and Disposition: discharge home when medically stable Attending: Jose Daniel Mauro
[2019-03-27] MEDS: Loperamide CAP* 2 MG PO PRN (20:04)
[2019-03-27] MEDS: Calcium Carbonate CHEW TAB* 500 MG (TUMS) PO PRN (20:04)
[2019-03-27] MEDS: Acetaminophen TAB* 325 MG PO PRN (20:04)
[2019-03-28] MEDS: NS 0.9% 1000 ML** 1,000 ML IV SCH (03:29)
[2019-03-28] MEDS: Levothyroxine TAB* 150 MCG TAB PO SCH (04:06)
[2019-03-28] MEDS: Acetaminophen TAB* 325 MG PO PRN (04:06)
[2019-03-28] MEDS: Loperamide CAP* 2 MG PO PRN ×2 (04:07→08:26)
[2019-03-28] MEDS: Heparin VIAL(*) 5000 UNITS/ML VIAL (FIVE THOUSAND) SUBCUT SCH ×2 (04:08→12:20)
[2019-03-28 07:49] LABS: BUN/Creatinine Ratio 11.3 (8-20); Calcium 7.6 mg/dL (8.6-10.3); EGFR Non-African American 91.7 (>60); Magnesium 1.9 mg/dL (1.9-2.7); Potassium 3.5 mmol/L (3.5-5.0)
[2019-03-28 07:59] VITALS: BP 100/42
[2019-03-28] MEDS: Cephalexin CAP* 500 MG PO SCH (08:25)
[2019-03-28] MEDS: Magnesium Oxide TAB* 400 MG PO SCH (08:25)
[2019-03-28] MEDS: Pantoprazole TAB * 40 MG TAB PO SCH (08:25)
[2019-03-28] MEDS: Atorvastatin* 10 MG TAB PO SCH (08:25)
[2019-03-28] MEDS ORDERED: Lisinopril TAB* 10 MG PO SCH (09:00)
[2019-03-28] MEDS: Ondansetron INJ* 2 MG/ML VIAL IV PRN (12:36)
--- NOTE | 2019-03-29 03:39 | DS ---
CC: Dr. Strickland * DISCHARGE SUMMARY: DATE OF ADMISSION: 03/24/19 DATE OF DISCHARGE: 03/28/19 PRIMARY CARE PROVIDER: Dr. Strickland. ATTENDING PHYSICIAN: Dr. Jose Daniel Mauro * (dictated by Lambert La NP) PRIMARY DIAGNOSES: 1. Diarrhea. 2. Nausea. 3. Acute kidney injury. 4. Hypokalemia. 5. Hypothyroidism. SECONDARY DIAGNOSES: 1. Hypertension. 2. Hyperlipidemia. DISCHARGE HOME MEDICATIONS: Continued Home Medications: 1. Simvastatin 10 mg daily. 2. Lisinopril 10 mg daily. 3. Calcium carbonate 420 mg daily. 4. Calcium with vitamin D combination 1 tab p.o. daily. 5. Omeprazole 20 mg p.o. daily. Changed Home Medications: 1. Synthroid increased from 125 mcg per day to 150 mcg per day. New home medications: 1. Keflex 500 mg p.o. b.i.d. x3 days. 2. Probiotic 1 each p.o. daily. 3. Magnesium oxide 400 mg p.o. daily. 4. Zofran ODT 4 mg p.r.n. HISTORY OF PRESENT ILLNESS/HOSPITAL COURSE: Mrs. Ring is a 84-year-old female with past medical history significant for hypertension, hypothyroid, hyperlipidemia, breast cancer; who presented to the emergency department on with diarrhea and weakness. While in the emergency room, the patient was noted to have an elevated CRP and WBC. She was also noted to have elevated creatinine, and hypokalemia. Given these findings the patient was admitted for further evaluation and treatment. During this hospital stay, the patient received IV fluid replacement and acute kidney injury resolved as her creatinine is now baseline. She also had a urine culture, which revealed E. coli and received appropriate antibiotics. Her electrolytes will be placed, including potassium and magnesium, both of which are now within normal limits. She continued to have diarrhea during her hospital stay, but it became less frequent and less severe. The patient also started to have some nausea during her hospital stay, but we suspect this is secondary to the viral gastroenteritis in addition to the fact that the patient was not taking her omeprazole from home. Today, 03/28/19 the patient is taking an adequate liquid p.o. The patient's vitals have improved. The patient was able to ambulate in the unit without difficulty. The patient's vital signs are stable. The patient is stable for discharge home. REVIEW OF SYSTEMS: The patient continues to have mild nausea at times. The patient reports diarrhea. The patient denies abdominal pain, fever, chills, weakness, shortness of breath, chest pain, palpitations. A 14 point review of systems was completed, all are negative. PHYSICAL EXAM: General: Mrs. Ring is an 84-year-old female who is sitting in the chair, appears to be in no acute distress, appears stated age. Vital Signs: Temp 97.9, HR 76, RR 16, O2 saturation 97% on room air, BP 100/42. HEENT : PERRLA. EOMs intact. Oral mucosa is moist without lesion. Posterior pharynx is clear. Neck: Supple. No lymphadenopathy. Cardiac: S1, S2 present. No murmurs, rubs or gallops. Regular rate and rhythm. Respiratory: Lungs are clear to auscultation. Good aeration. No wheezes, rhonchi or rubs. Abdomen: Soft, nontender. Bowel sounds are normoactive. Abdomen is nondistended. No pain to palpation of bilateral inguinal area. Extremities: No clubbing or cyanosis. No edema. Pedal pulses 2+ bilaterally. Extremities: No muscle or joint pain. Skin: Skin is grossly intact. Neuro: Neuro exam is grossly intact with no focal deficits or weakness. DIAGNOSTIC STUDIES/LAB DATA: WBC 9.2, hemoglobin 12.4, hematocrit 36, platelet 216. Sodium 136, potassium 3.5, chloride 112, carbon dioxide 21, BUN 7, creatinine 0.62. TSH 36.66, free T4 is 0.94, total T3 44. DISCHARGE PLAN/FOLLOWUP: 1. Diarrhea: As mentioned above we suspect the patient's diarrhea is secondary to viral gastroenteritis. The patient had abdominal imaging of an abdominal CT and abdominal x-ray, which were unremarkable for an acute process. It should be noted that the patient does have a small right inguinal hernia containing a segment of small bowel with no strangulation or obstruction. This area was nontender to palpation. Discussed signs and symptoms of worsening condition with the patient, she stated understanding. As for diarrhea, the patient should continue clear diet and advance to a BRAT diet. The patient to continue Imodium as needed. The patient to continue probiotic. 2. Nausea: As mentioned above the patient does report occasional nausea. She is able to take adequate p.o. liquid. Discussed continuing clear liquid diet and advancing to BRAT as tolerated. The patient was provided with a Zofran prescription. The patient should continue her PPIs as this could be exacerbating in the nausea. The patient should continue Tums as needed as that was helpful here in the hospital. 3. Acute kidney injury: As mentioned above, the patient did have acute kidney injury on admission, which has resolved. 4. Hypothyroid: During this admission the patient did had a TSH which was elevated at 36.66. This could be due to a true hypothyroid state or sick thyroid. Either way, given the height of elevation I have increased her Synthroid from 125 mcg daily to 150 mcg daily. I have encouraged her to follow up with primary care in 4 to 6 week for repeat TSH. 5. Electrolyte imbalance: During this stay the patient required replacement of potassium and magnesium. Both of which are at this time within normal limits. I would recommend the patient follow up the primary care next week for a repeat BMP. 6. Hypertension: The patient should continue her lisinopril. 7. Hyperlipidemia: The patient should continue her statin. 8. Followup: As mentioned above, the patient should follow with her primary care next week for a repeat BMP and repeat a TSH in 4 to 6 weeks. The patient also had a scheduled colonoscopy that had to be canceled as she presented to the emergency room. I encouraged the patient to follow up with her primary care and discussed having this rescheduled at a later time. 9. Education: The patient was educated on signs and symptoms of new worsening condition and when to return to the near emergency department, the patient stated understanding. This is a summarized report of a complex medical history and hospital stay. For further details please see the entire medical record. TIME SPENT: Approximately 45 minutes were spent on this discharge, greater than half of that spent face to face with the patient discussing discharge plans and instructions. LAMBERT LA, MACHO [id number]/[facility] #: [id number] RADHA
== END 2019-03-28 15:00 | disposition home or self-care (01) | DRG 392 ==
LOC: ED 18:15 → MEDTELE 03-24 00:16 → MED 03-25 23:55 → OBSVTOIN 03-26 16:00
PROVIDERS: ADMIT Internal Medicine; ATTEND Internal Medicine
DX: A08.4 Viral intestinal infection, unspecified (principal); N17.9 Acute kidney failure, unspecified; N39.0 Urinary tract infection, site not specified; E03.9 Hypothyroidism, unspecified; E83.42 Hypomagnesemia; E87.6 Hypokalemia; I10 Essential (primary) hypertension; E78.5 Hyperlipidemia, unspecified; I44.7 Left bundle-branch block, unspecified; M25.569 Pain in unspecified knee; R11.0 Nausea; K30 Functional dyspepsia; Z85.3 Personal history of malignant neoplasm of breast; B96.20 Unspecified Escherichia coli [E. coli] as the cause of diseases classified elsewhere; Z86.11 Personal history of tuberculosis; Z79.899 Other long term (current) drug therapy; Z82.49 Family history of ischemic heart disease and other diseases of the circulatory system; Z80.3 Family history of malignant neoplasm of breast
CPT/HCPCS: 36415; 74019; 74176; 80048; 80053; 81003; 81015; 82272; 83605; 83735; 84439; 84443; 84479; 85025; 86140; 87045; 87046; 87077; 87086; 87186; 87493; 87899; 93005; 99284; A9270-GY; G0378; G8978-GP-CI; G8979-GP-CI; G8980-GP-CI; J0696; J1644; J2405; J3475; J3480

== ENCOUNTER → 2019-04-01 09:23 | Emergency (ER) | payer MEDICARE, BC ==
[~2019-04-01 09:23] MED LIST: NS 0.9% 1000 ML** 1,000 ML IV ONE; Potassium Chlor TAB* 20 MEQ TAB.ER PO ONE
[2019-04-01 10:21] LABS: ABS Basophils 0.1 10^3/ul (0-0.2); ABS Eosinophils 0.1 10^3/ul (0-0.6); ABS Lymphocytes 2.3 10^3/ul (1.0-4.8); ABS Monocytes 1.3 10^3/ul (0-0.8); ABS Neutrophils 7.5 10^3/ul (1.5-7.7); Eosinophil % 1.3 %; Hematocrit 41 % (35-47); Hemoglobin 13.6 g/dL (12.0-16.0); Lymphocyte % 20.4 %; Mean Corpuscular HGB Conc 33 g/dL (31-36); Mean Corpuscular Hemoglobin 31 pg (27-31); Mean Corpuscular Volume 94 fL (80-97); Mean Platelet Volume 9.6 fL (7.4-10.4); Nucleated Red Blood Cells % 0.2; Platelet Count 284 10^3/uL (150-450); Red Blood Count 4.33 10^6 /uL (3.70-4.87); Red Cell Distribution Width 14 % (10.5-15); White Blood Count 11.3 10^3/uL (3.5-10.8)
--- NOTE | 2019-04-01 10:36 | ED ---
GI/ HPI - HPI Summary HPI Summary: This patient is an 84 year old female presenting to [facility] with a chief complaint of decreased appetite. The patient was recently seen here for a stomach viral syndrome and is now saying it is impossible for her to drink and she has drank very little. She states she has been urinating very little and is concerned about this. She last urinated this morning but emphasized that it was a small amount of urine. She reports edema in her bilateral lower extremities. She states she has not felt any better since she left the hospital. Pt denies any fever, chills, erythema of eyes, sore throat, CP, SOB, cough, abdominal pain , N/V, dysuria, hematuria, myalgia, rash, or dizziness. - History of Current Complaint Chief Complaint: EDGeneral Time Seen by Provider: 04/01/19 09:29 Stated Complaint: ABD PAIN PER PT Hx Obtained From: Patient Onset/Duration: Started Days Ago Timing: Constant Pain Intensity: 0 - Additional Pertinent History Primary Care Physician: [id number] - Allergy/Home Medications Allergies/Adverse Reactions: Allergies Allergy/AdvReac Type Severity Reaction Status Date / Time No Known Allergies Allergy Verified 04/01/19 09:27 Home Medications: Home Medications Lisinopril TAB* [Prinivil TAB*] 10 mg PO DAILY 04/01/19 [History Confirmed 04/01] Loperamide CAP* [Imodium CAP*] 2 mg PO Q6HR PRN 04/01/19 [History Confirmed ] Omeprazole CAP (NF) [Prilosec CAP* 20 MG] 20 mg PO DAILY 04/01/19 [History Confirmed 04/01/19] PMH/Surg Hx/FS Hx/Imm Hx Endocrine/Hematology History: Reports: Hx Thyroid Disease - on meds Cardiovascular History: Reports: Hx Hypertension Respiratory History: Reports: Other Respiratory Problems/Disorders - TB resolved , APPROX AGE 24 Sensory History: Reports: Hx Contacts or Glasses Denies: Hx Hearing Aid Opthamlomology History: Reports: Hx Contacts or Glasses - Cancer History Cancer Type, Location and Year: breast ca - Surgical History Surgery Procedure, Year, and Place: gallbladder, lung resection for TB. Infectious Disease History: No Infectious Disease History: Denies: Traveled Outside the [place] in Last 30 Days - Family History Known Family History: Positive: Hypertension - Social History Alcohol Use: None Substance Use Type: Reports: None Smoking Status (MU): Never Smoked Tobacco Review of Systems Negative: Fever, Chills Negative: Erythema Negative: Sore Throat Negative: Chest Pain Negative: Shortness Of Breath, Cough Negative: Abdominal Pain, Vomiting, Nausea Negative: dysuria, hematuria Positive: Edema. Negative: Myalgia Negative: Rash Neurological: Other - Neg: Dizziness All Other Systems Reviewed And Are Negative: No Physical Exam - Summary Physical Exam Summary: Constitutional: Well-developed, Well-nourished, Alert. (-) Distressed Skin: Warm, Dry HENT: Normocephalic; Atraumatic Eyes: Conjunctiva normal Neck: Musculoskeletal ROM normal neck. (-) JVD, (-) Stridor, (-) Tracheal deviation Cardio: Rhythm regular, rate normal, Heart sounds normal; Intact distal pulses; The pedal pulses are 2+ and symmetric. Radial pulses are 2+ and symmetric. (-) Murmur Pulmonary/Chest wall: Effort normal. (-) Respiratory distress, (-) Wheezes, (+) Crackles on the left side. Abd: Soft, (-) tenderness, (-) Distension, (-) Guarding, (-) Rebound Musculoskeletal: (+) Trace Edema in bilateral lower extremities. Lymph: (-) Cervical adenopathy Neuro: Alert, Oriented x3 Psych: Mood and affect Normal Triage Information Reviewed: Yes Vital Signs On Initial Exam: Initial Vitals Temp Pulse Resp BP Pulse Ox 98.3 F 80 19 111/69 97 04/01/19 09:24 04/01/19 09:24 04/01/19 09:24 04/01/19 09:24 04/01/19 09:24 Vital Signs Reviewed: Yes Diagnostics - Vital Signs Vital Signs Temp Pulse Resp BP Pulse Ox 04/01/19 09:24 98.3 F 80 19 111/69 97 - Laboratory Lab Results: Lab Results 04/01/19 Range/Units 09:53 WBC 11.3 H (3.5-10.8) 10^3/uL RBC 4.33 (3.70-4.87) 10^6 /uL Hgb 13.6 (12.0-16.0) g/dL Hct 41 (35-47) % MCV 94 (80-97) fL MCH 31 (27-31) pg MCHC 33 (31-36) g/dL RDW 14 (10.5-15) % Plt Count 284 (150-450) 10^3/uL MPV 9.6 (7.4-10.4) fL Neut % (Auto) 66.5 % Lymph % (Auto) 20.4 % [place] % (Auto) 11.1 % Eos % (Auto) 1.3 % Baso % (Auto) 0.7 % Absolute Neuts (auto) 7.5 (1.5-7.7) 10^3/ul Absolute Lymphs (auto) 2.3 (1.0-4.8) 10^3/ul Absolute Monos (auto) 1.3 H (0-0.8) 10^3/ul Absolute Eos (auto) 0.1 (0-0.6) 10^3/ul Absolute Basos (auto) 0.1 (0-0.2) 10^3/ul Absolute Nucleated RBC 0.0 10^3/ul Nucleated RBC % 0.2 Result Diagrams: 04/01/19 09:53 04/01/19 09:53 Lab Statement: Any lab studies that have been ordered have been reviewed, and results considered in the medical decision making process. - Radiology CXR Radiology Interpretation Completed By: Radiologist Summary of Radiographic Findings: Small left pleural effusion. ED Provider has reviewed this report. - EKG 0940 Cardiac Rate: NL EKG Rhythm: Sinus Rhythm - [address] Segment: Normal Summary of EKG Findings: No STEMI GIGU Course/Dx - Course Course Of Treatment: This patient is an 84 year old female presenting to [facility] with a chief complaint of decreased appetite. CXR was remarkable for a small left pleural effusion. Labs are nonactionable. No evidence for acute coronary syndrome. Patient feels better and is ambulatory in the ED. Encouraged increased caloric intake. Plan for discharge and follow up with PCP was discussed with the patient and the patient was agreeable with this plan. - Diagnoses Provider Diagnoses: Weakness, Pleural effusion, left Discharge - Sign-Out/Discharge Documenting (check all that apply): Patient Departure - Discharge Patient Received Moderate/Deep Sedation with Procedure: No - Discharge Plan Condition: Stable Disposition: HOME Patient Education Materials: Weakness (ED), Pleural Effusion (ED) Referrals: [facility] [Outside] - 2 Days Additional Instructions: Increase caloric intake. Follow up with [facility] in 2 days. Return to ED with any new or worsening symptoms. - Attestation Statements Document Initiated by Scribe: Yes Documenting Scribe: Martín Anderson Provider For Whom Scribe is Documenting (Include Credential): Gregor Doherty MD Scribe Attestation: IMartín, scribed for Gregor Doherty MD on 04/01/19 at 1505. Status of Scribe Document: Ready
[2019-04-01 10:38] LABS: Albumin/Globulin Ratio 1.1 (1-3); BUN/Creatinine Ratio 8.2 (8-20); Calcium 8.5 mg/dL (8.6-10.3); EGFR African American 91.9 (>60); Globulin 2.7 g/dL (2-4); Potassium 3.2 mmol/L (3.5-5.0); Total Bilirubin 0.5 mg/dL (0.2-1.0); Total Protein 5.7 g/dL (6.4-8.9)
[2019-04-01 10:39] LABS: Troponin I 0.01 ng/mL (<0.04)
[2019-04-01 11:09] LABS: Free T4 1.09 ng/dL (0.61-1.12)
[2019-04-01 12:57] LABS: Urine Appearance Clear; Urine Bacteria 1+ (Absent); Urine Bilirubin Negative (Negative); Urine Blood 1+ (Negative); Urine Color Straw; Urine Glucose Negative (Negative); Urine Ketones Negative (Negative); Urine Nitrite Negative (Negative); Urine Protein Negative (Negative); Urine Red Blood Cell Trace(0-2/hpf) (Absent); Urine Specific Gravity 1.004 (1.010-1.030); Urine Urobilinogen Negative (Negative); Urine White Blood Cell Trace(0-5/hpf) (Absent)
[2019-04-01 15:01] LABS: Troponin I 0.02 ng/mL (<0.04)
[2019-04-01 15:32] LABS: TSH (Thyroid Stimulating Horm) 44.25 mcIU/mL (0.34-5.60)
[2019-04-01 15:46] VITALS: BP 130/61
== END | disposition home or self-care (01) ==
LOC: ED 09:23
DX: R53.1 Weakness (principal); J90 Pleural effusion, not elsewhere classified; I10 Essential (primary) hypertension; E07.9 Disorder of thyroid, unspecified; R94.31 Abnormal electrocardiogram [ECG] [EKG]; Z85.3 Personal history of malignant neoplasm of breast; Z88.8 Allergy status to other drugs, medicaments and biological substances; Z79.899 Other long term (current) drug therapy
CPT/HCPCS: 36415; 71045; 80053; 81003; 81015; 83605; 83880; 84439; 84443; 84484; 85025; 87086; 93005; 99283; A9270-GY

== ENCOUNTER 2019-04-03 13:57 | Emergency (ER) | payer MEDICARE, BC ==
[2019-04-03 19:16] LABS: ABS Basophils 0.1 10^3/ul (0-0.2); ABS Eosinophils 0.2 10^3/ul (0-0.6); ABS Lymphocytes 3.1 10^3/ul (1.0-4.8); ABS Monocytes 1.3 10^3/ul (0-0.8); ABS Neutrophils 7.8 10^3/ul (1.5-7.7); ABS Nucleated RBC 0.1 10^3/ul; Eosinophil % 1.7 %; Hematocrit 44 % (35-47); Hemoglobin 14.4 g/dL (12.0-16.0); Lymphocyte % 24.5 %; Mean Corpuscular HGB Conc 33 g/dL (31-36); Mean Corpuscular Hemoglobin 32 pg (27-31); Mean Corpuscular Volume 96 fL (80-97); Mean Platelet Volume 9.5 fL (7.4-10.4); Nucleated Red Blood Cells % 0.7; Platelet Count 244 10^3/uL (150-450); Red Blood Count 4.57 10^6 /uL (3.70-4.87); Red Cell Distribution Width 15 % (10.5-15); White Blood Count 12.5 10^3/uL (3.5-10.8)
[2019-04-03 19:23] LABS: Albumin 3.1 g/dL (3.2-5.2); Albumin/Globulin Ratio 1.1 (1-3); BUN/Creatinine Ratio 12.5 (8-20); C Reactive Protein 3.9 mg/L (<8.01); Calcium 8.6 mg/dL (8.6-10.3); EGFR African American 93.4 (>60); EGFR Non-African American 77.2 (>60); Globulin 2.9 g/dL (2-4); Potassium 3.6 mmol/L (3.5-5.0); Total Bilirubin 0.5 mg/dL (0.2-1.0)
[2019-04-03 21:01] LABS: Urine Appearance Cloudy; Urine Bacteria 1+ (Absent); Urine Bilirubin Negative (Negative); Urine Blood 1+ (Negative); Urine Color Yellow; Urine Glucose Negative (Negative); Urine Ketones 1+ (Negative); Urine Nitrite Negative (Negative); Urine Protein Negative (Negative); Urine Red Blood Cell 2+(6-10/hpf) (Absent); Urine Specific Gravity 1.017 (1.010-1.030); Urine Squamous Epithelial Cell Present (Absent); Urine Urobilinogen Negative (Negative); Urine White Blood Cell 3+(>20/hpf) (Absent)
[2019-04-03] MEDS ORDERED: Furosemide TAB* 20 MG PO ONE (23:05)
--- NOTE | 2019-04-03 23:09 | ED ---
Lower Extremity - HPI Summary HPI Summary: Patient complains of bilateral lower extremity edema x days, and decreased urine output. Patient seen here for same symptoms on 04/01/19. Discharge with recommendation to follow-up with primary care. Chest x-ray positive for small pleural effusion. Patient denies fever, cough, sore throat, CP, SOB, N/V/D, abdominal pain, change in BM M. Medical history is HTN, hypothyroid. Recently admitted to [facility] [place] ER for diarrhea x 2 days. States she has been less active since discharge on 03/26/19. - History of Current Complaint Chief Complaint: EDGeneral Stated Complaint: RETAINING FLUID/GASTRIC PROBLEMS PER PT Time Seen by Provider: 04/03/19 18:37 Hx Obtained From: Patient Mechanism Of Injury: Unknown Onset of Pain: Days Severity Currently: None Pain Intensity: 0 Pain Scale Used: 0-10 Numeric Associated Signs And Symptoms: Positive: Swelling Aggravating Factor(s): Nothing - Allergies/Home Medications Allergies/Adverse Reactions: Allergies Allergy/AdvReac Type Severity Reaction Status Date / Time No Known Allergies Allergy Verified 04/03/19 14:05 PMH/Surg Hx/FS Hx/Imm Hx Endocrine/Hematology History: Reports: Hx Thyroid Disease - on meds Cardiovascular History: Reports: Hx Hypertension Respiratory History: Reports: Other Respiratory Problems/Disorders - TB resolved , [facility]PROX AGE 24 Sensory History: Reports: Hx Contacts or Glasses Denies: Hx Hearing Aid Opthamlomology History: Reports: Hx Contacts or Glasses EENT History: Denies: Hx Deafness Neurological History: Denies: Hx Dementia Psychiatric History: Denies: Hx Autism - Cancer History Cancer Type, Location and Year: breast ca - Surgical History Surgery Procedure, Year, and Place: gallbladder, lung resection for TB. Infectious Disease History: No Infectious Disease History: Denies: Traveled Outside the [place] in Last 30 Days - Family History Known Family History: Positive: Hypertension - Social History Alcohol Use: None Substance Use Type: Reports: None Smoking Status (MU): Never Smoked Tobacco Review of Systems Constitutional: Negative Eyes: Negative ENT: Negative Cardiovascular: Negative Respiratory: Negative Gastrointestinal: Negative Positive: other Musculoskeletal: Negative Skin: Negative Neurological: Negative Psychological: Normal All Other Systems Reviewed And Are Negative: Yes Physical Exam - Summary Physical Exam Summary: Mild bilateral nonpitting swelling edema to bilateral lower extremities. No erythema, ecchymosis, deformity, extra warmth noted. Calves soft nontender bilaterally. PMS intact distally on bilateral lower extremities. Lung sounds clear to auscultation bilaterally. Abdomen soft nontender. RRR. Triage Information Reviewed: Yes Vital Signs On Initial Exam: Initial Vitals Temp Pulse Resp BP Pulse Ox 98.5 F 96 16 114/66 96 04/03/19 14:00 04/03/19 14:00 04/03/19 14:00 04/03/19 14:00 04/03/19 14:00 Vital Signs Reviewed: Yes Appearance: Positive: Well-Appearing Skin: Positive: Warm Head/Face: Positive: Normal Head/Face Inspection Eyes: Positive: Normal Neck: Positive: Supple Respiratory/Lung Sounds: Positive: Clear to Auscultation Cardiovascular: Positive: Normal Abdomen Description: Positive: Nontender Musculoskeletal: Positive: Normal Neurological: Positive: Normal Psychiatric: Positive: Normal AVPU Assessment: Alert - [place] Coma Scale Best Eye Response: 4 - Spontaneous Best Motor Response: 6 - Obeys Commands Best Verbal Response: 5 - Oriented Coma Scale Total: 15 Diagnostics - Vital Signs Vital Signs Temp Pulse Resp BP Pulse Ox 04/03/19 19:15 78 136/73 96 04/03/19 19:07 75 97 04/03/19 18:16 92 94 04/03/19 18:15 71 149/70 96 04/03/19 17:32 97.7 F 82 16 119/63 100 04/03/19 15:31 97.8 F 87 20 107/54 99 04/03/19 14:00 98.5 F 96 16 114/66 96 - Laboratory Lab Results: Lab Results 04/03/19 04/03/19 04/03/19 Range/Units 18:56 18:56 20:50 WBC 12.5 H (3.5-10.8) 10^3/uL RBC 4.57 (3.70-4.87) 10^6 /uL Hgb 14.4 (12.0-16.0) g/dL Hct 44 (35-47) % MCV 96 (80-97) fL MCH 32 H (27-31) pg MCHC 33 (31-36) g/dL RDW 15 (10.5-15) % Plt Count 244 (150-450) 10^3/uL MPV 9.5 (7.4-10.4) fL Neut % (Auto) 62.4 % Lymph % (Auto) 24.5 % [place] % (Auto) 10.8 % Eos % (Auto) 1.7 % Baso % (Auto) 0.6 % Absolute Neuts (auto) 7.8 H (1.5-7.7) 10^3/ul Absolute Lymphs (auto) 3.1 (1.0-4.8) 10^3/ul Absolute Monos (auto) 1.3 H (0-0.8) 10^3/ul Absolute Eos (auto) 0.2 (0-0.6) 10^3/ul Absolute Basos (auto) 0.1 (0-0.2) 10^3/ul Absolute Nucleated RBC 0.1 10^3/ul Nucleated RBC % 0.7 Sodium 136 (135-145) mmol/L Potassium 3.6 (3.5-5.0) mmol/L Chloride 104 (101-111) mmol/L Carbon Dioxide 26 (22-32) mmol/L Anion Gap 6 (2-11) mmol/L BUN 9 (6-24) mg/dL Creatinine 0.72 (0.51-0.95) mg/dL Est GFR ( Amer) 93.4 (>60) Est GFR (Non-Af Amer) 77.2 (>60) BUN/Creatinine Ratio 12.5 (8-20) Glucose 92 (70-100) mg/dL Calcium 8.6 (8.6-10.3) mg/dL Total Bilirubin 0.50 (0.2-1.0) mg/dL AST 42 H (13-39) U/L ALT 25 (7-52) U/L Alkaline Phosphatase 100 (34-104) U/L C-Reactive Protein 3.90 (<8.01) mg/L B-Natriuretic Peptide (<=100) pg/mL Total Protein 6.0 L (6.4-8.9) g/dL Albumin 3.1 L (3.2-5.2) g/dL Globulin 2.9 (2-4) g/dL Albumin/Globulin Ratio 1.1 (1-3) Urine Color Yellow Urine Appearance Cloudy Urine pH 5.0 (5-9) Ur Specific [place] 1.017 (1.010-1.030) Urine Protein Negative (Negative) Urine Ketones 1+ A (Negative) Urine Blood 1+ A (Negative) Urine Nitrate Negative (Negative) Urine Bilirubin Negative (Negative) Urine Urobilinogen Negative (Negative) Ur Leukocyte Esterase 2+ A (Negative) Urine WBC (Auto) 3+(>20/hpf) A (Absent) Urine RBC (Auto) 2+(6-10/hpf) A (Absent) Ur Squamous Epith Cells Present A (Absent) Urine Bacteria 1+ A (Absent) Urine Glucose Negative (Negative) 04/03/19 Range/Units 22:01 WBC (3.5-10.8) 10^3/uL RBC (3.70-4.87) 10^6 /uL Hgb (12.0-16.0) g/dL Hct (35-47) % MCV (80-97) fL MCH (27-31) pg MCHC (31-36) g/dL RDW (10.5-15) % Plt Count (150-450) 10^3/uL MPV (7.4-10.4) fL Neut % (Auto) % Lymph % (Auto) % [place] % (Auto) % Eos % (Auto) % Baso % (Auto) % Absolute Neuts (auto) (1.5-7.7) 10^3/ul Absolute Lymphs (auto) (1.0-4.8) 10^3/ul Absolute Monos (auto) (0-0.8) 10^3/ul Absolute Eos (auto) (0-0.6) 10^3/ul Absolute Basos (auto) (0-0.2) 10^3/ul Absolute Nucleated RBC 10^3/ul Nucleated RBC % Sodium (135-145) mmol/L Potassium (3.5-5.0) mmol/L Chloride (101-111) mmol/L Carbon Dioxide (22-32) mmol/L Anion Gap (2-11) mmol/L BUN (6-24) mg/dL Creatinine (0.51-0.95) mg/dL Est GFR ( Amer) (>60) Est GFR (Non-Af Amer) (>60) BUN/Creatinine Ratio (8-20) Glucose (70-100) mg/dL Calcium (8.6-10.3) mg/dL Total Bilirubin (0.2-1.0) mg/dL AST (13-39) U/L ALT (7-52) U/L Alkaline Phosphatase (34-104) U/L C-Reactive Protein (<8.01) mg/L B-Natriuretic Peptide 70 (<=100) pg/mL Total Protein (6.4-8.9) g/dL Albumin (3.2-5.2) g/dL Globulin (2-4) g/dL Albumin/Globulin Ratio (1-3) Urine Color Urine Appearance Urine pH (5-9) Ur Specific [place] (1.010-1.030) Urine Protein (Negative) Urine Ketones (Negative) Urine Blood (Negative) Urine Nitrate (Negative) Urine Bilirubin (Negative) Urine Urobilinogen (Negative) Ur Leukocyte Esterase (Negative) Urine WBC (Auto) (Absent) Urine RBC (Auto) (Absent) Ur Squamous Epith Cells (Absent) Urine Bacteria (Absent) Urine Glucose (Negative) Result Diagrams: 04/03/19 18:56 04/03/19 18:56 Lab Statement: Any lab studies that have been ordered have been reviewed, and results considered in the medical decision making process. Lower Extremity Course/Dx - Course Course Of Treatment: Patient complains of bilateral lower extremity edema x days , and decreased urine output. Patient seen here for same symptoms on 04/01/19. Discharge with recommendation to follow-up with primary care. Chest x-ray positive for small pleural effusion. Patient denies fever, cough, sore throat, CP, SOB, N/V/D, abdominal pain, change in BM M. Medical history is HTN, hypothyroid. Recently admitted to [facility] [place] ER for diarrhea x 2 days. States she has been less active since discharge on 03/26/19. Physical exam:Mild bilateral nonpitting swelling edema to bilateral lower extremities. No erythema, ecchymosis, deformity, extra warmth noted. Calves soft nontender bilaterally. PMS intact distally on bilateral lower extremities. Lung sounds clear to auscultation bilaterally. Abdomen soft nontender. RRR. Vital signs within normal limits. WBC 12.5. Labs otherwise unremarkable. Urine suggests UTI however very similar urinalysis results and 04/01 were negative per cultures. Chest x-ray positive for small left pleural effusion with minimal change from prior imaging on 04/01. Discussed patient with Dr. payne who recommended starting patient on Lasix 20 mg by mouth daily and potassium 10 MEQ PO BID, and follow-up with primary care. Advised patient to follow up with primary care. Patient understands and approves of plan. - Diagnoses Provider Diagnoses: Bilateral lower extremity edema Discharge - Sign-Out/Discharge Documenting (check all that apply): Patient Departure Patient Received Moderate/Deep Sedation with Procedure: No - Discharge Plan Condition: Stable Disposition: HOME Prescriptions: Furosemide [Lasix] 20 mg PO DAILY 20 Days #20 tablet Potassium Chlor TAB* [Klor Con ER TAB*] 20 meq PO DAILY 20 Days #20 tab.er Patient Education Materials: Leg Edema (ED) Referrals: Daniel Strickland MD [Primary Care Provider] - Additional Instructions: Follow-up with your primary care doctor. Take the Lasix daily as directed. Take potassium 20 MEQ daily instead of 10 MEQ as prescribed on your visit on the . Return to the ED for any new or worsening symptoms. - Billing Disposition and Condition Condition: STABLE Disposition: Home
[2019-04-03 23:40] VITALS: BP 138/67
== END 2019-04-03 23:55 | disposition home or self-care (01) ==
LOC: ED 13:57
DX: R60.9 Edema, unspecified (principal); J90 Pleural effusion, not elsewhere classified; I10 Essential (primary) hypertension; E07.9 Disorder of thyroid, unspecified; Z85.3 Personal history of malignant neoplasm of breast
CPT/HCPCS: 36415; 71046; 80053; 81003; 81015; 83880; 85025; 86140; 87086; 99284; A9270-GY

== ENCOUNTER 2019-04-30 17:49 | Emergency (ER) | payer MEDICARE, BC ==
[2019-04-30 19:53] LABS: ABS Basophils 0.1 10^3/ul (0-0.2); ABS Eosinophils 1.8 10^3/ul (0-0.6); ABS Lymphocytes 3.8 10^3/ul (1.0-4.8); ABS Monocytes 1.3 10^3/ul (0-0.8); ABS Neutrophils 5.9 10^3/ul (1.5-7.7); Eosinophil % 13.9 %; Hematocrit 42 % (35-47); Hemoglobin 13.6 g/dL (12.0-16.0); Lymphocyte % 29.4 %; Mean Corpuscular HGB Conc 33 g/dL (31-36); Mean Corpuscular Hemoglobin 31 pg (27-31); Mean Corpuscular Volume 96 fL (80-97); Nucleated Red Blood Cells % 0.1; Platelet Count 274 10^3/uL (150-450); Red Blood Count 4.34 10^6 /uL (3.70-4.87); Red Cell Distribution Width 14 % (10-15); White Blood Count 12.9 10^3/uL (3.5-10.8)
--- NOTE | 2019-04-30 19:55 | ED ---
GI/ HPI - HPI Summary HPI Summary: Patient is a 84 y/o F presenting to ED with complaints of decreased frequency of urination and diarrhea. She states that she has had a "stomach bug" for the past month and has recently had decreased frequency of urination. She denies pain and malodorous urine. She additionally notes constipation, decreased appetite, nausea, and recent weight loss. She called her [facility] doctor who recommended she come to ED for evaluation. Patient had a colonoscopy and endoscopy within the past month which were reported to be normal. On triage, pain is denied. Nothing is noted to aggravate/alleviate Sx. Home medications and allergies are reviewed. - History of Current Complaint Chief Complaint: EDWeakness Stated Complaint: NOT URINATING, OR EATING RIGHT PER PT Hx Obtained From: Patient Onset/Duration: Started Weeks Ago - stomach bug past month, Still Present Timing: Constant, Lasting Weeks - stomach bug past month Current Severity: None Pain Intensity: 0 Associated Signs and Symptoms: Positive: Nausea, Constipation, Diarrhea, Change in Appetite - decreased, Other: - decreased frequency of urination, recent weight loss endorsed, pain and malodorous urine are denied Aggravating Factor(s): Nothing Alleviating Factor(s): Nothing - Additional Pertinent History Primary Care Physician: [id number] - Allergy/Home Medications Allergies/Adverse Reactions: Allergies Allergy/AdvReac Type Severity Reaction Status Date / Time No Known Allergies Allergy Verified 04/03/19 14:05 PMH/Surg Hx/FS Hx/Imm Hx Endocrine/Hematology History: Reports: Hx Thyroid Disease - on meds Cardiovascular History: Reports: Hx Hypertension Respiratory History: Reports: Other Respiratory Problems/Disorders - TB resolved , [facility] AGE 24 Sensory History: Reports: Hx Contacts or Glasses Denies: Hx Deafness, Hx Hearing Aid Opthamlomology History: Reports: Hx Contacts or Glasses Neurological History: Denies: Hx Dementia Psychiatric History: Denies: Hx Autism - Cancer History Cancer Type, Location and Year: breast ca - Surgical History Surgery Procedure, Year, and Place: gallbladder, lung resection for TB. Infectious Disease History: No Infectious Disease History: Denies: Traveled Outside the [place] in Last 30 Days - Family History Known Family History: Positive: Hypertension - Social History Alcohol Use: None Substance Use Type: Reports: None Smoking Status (MU): Never Smoked Tobacco Review of Systems Constitutional: Other - positive - recent weight loss Gastrointestinal: Other - positive - constipation, decreased appetite Positive: Diarrhea, Nausea Genitourinary: Other - negative - pain, malodorous urine Positive: frequency - decreased frequency of urination All Other Systems Reviewed And Are Negative: Yes Physical Exam - Summary Physical Exam Summary: Appearance: Well-appearing, Well-nourished, lying in bed comfortably Skin: Warm, dry, no obvious rash Eyes: sclera anicteric, no conjunctival pallor ENT: mucous membranes moist, pharynx appears normal Neck: Supple, nontender Respiratory: Clear to auscultation, no signs of respiratory distress Cardiovascular: Normal S1, S2. No murmurs. Normal distal pulses in tibial and radial bilaterally. Abdomen: Soft, nontender, normal active bowel sounds present Musculoskeletal: Normal, Strength/ROM Intact Neurological: A&Ox3, awake and alert, mentation is normal, speech is fluent and appropriate Psychiatric: affect is normal, does not appear anxious or depressed Triage Information Reviewed: Yes Vital Signs On Initial Exam: Initial Vitals Temp Pulse Resp BP Pulse Ox 98.0 F 85 18 114/67 96 04/30/19 18:07 04/30/19 18:07 04/30/19 18:07 04/30/19 18:07 04/30/19 18:07 Vital Signs Reviewed: Yes Diagnostics - Vital Signs Vital Signs Temp Pulse Resp BP Pulse Ox 04/30/19 18:07 98.0 F 85 18 114/67 96 - Laboratory Result Diagrams: 04/30/19 19:47 04/30/19 19:47 Lab Statement: Any lab studies that have been ordered have been reviewed, and results considered in the medical decision making process. - EKG 2019 Cardiac Rate: NL - rate of 72 BPM EKG Rhythm: Sinus Rhythm Summary of EKG Findings: EKG showed NSR with rate of 72 BPM, LBBB, no ischemic changes. GIGU Course/Dx - Course Course Of Treatment: Patient is a 84 y/o F presenting to ED with complaints of decreased frequency of urination and diarrhea. She states that she has had a "stomach bug" for the past month and has recently had decreased frequency of urination. She denies pain and malodorous urine. She additionally notes constipation, decreased appetite, nausea, and recent weight loss. She called her [facility] doctor who recommended she come to ED for evaluation. Patient had a colonoscopy and endoscopy within the past month which were reported to be normal. Physical exam is unremarkable. EKG showed NSR with rate of 72 BPM, LBBB , no ischemic changes. Labs showed WBC 12.9, absolute monos 1.3, absolute eos 1.8, sodium 134, chloride 100, magnesium 1.8, AST 40, trop 0, CRP < 1. UA showed 1+ ketones and blood, 3+ WBC and leukocyte esterase, 2+ RBC, 1+ bacteria , squamous epith cells present. During ED course, patient received fluids. Results of labs and tests were discussed, patient was discharged with PCP follow up. - Diagnoses Provider Diagnoses: Chronic diarrhea Discharge - Sign-Out/Discharge Documenting (check all that apply): Patient Departure - discharge Patient Received Moderate/Deep Sedation with Procedure: No - Discharge Plan Condition: Good Disposition: HOME Prescriptions: Ciprofloxacin TAB* [Cipro 500 MG TAB*] 500 mg PO BID #14 tab Patient Education Materials: Chronic Diarrhea (ED) Referrals: Daniel Strickland MD [Primary Care Provider] - 3 Days Additional Instructions: Continue the medications your doctors have prescribed while they continue to search for a solution to your symptoms. The lab work we did tonight did show that your kidney function is fine and there is no evidence of significant dehydration. - Billing Disposition and Condition Condition: GOOD Disposition: Home - Attestation Statements Document Initiated by Iliana: Yes Documenting Scribe: APURVA HALL Provider For Whom Iliana is Documenting (Include Credential): NIKKI PRIDE MD Scribe Attestation: APURVA Roman, scribed for NIKKI PRIDE MD on 05/04/19 at 0753. Scribe Documentation Reviewed: Yes Provider Attestation: The documentation as recorded by the APURVA floyd accurately reflects the service I personally performed and the decisions made by me, NIKKI RPIDE MD Status of Scribe Document: Viewed
[2019-04-30 20:00] LABS: INR 0.95 (0.82-1.09)
[2019-04-30 20:11] LABS: ALT 16 U/L (7-52); AST 40 U/L (13-39); Albumin 3.7 g/dL (3.2-5.2); Albumin/Globulin Ratio 1.2 (1-3); Alkaline Phosphatase 70 U/L (34-104); Anion Gap 8 mmol/L (2-11); BUN/Creatinine Ratio 18.5 (8-20); Blood Urea Nitrogen 12 mg/dL (6-24); C Reactive Protein < 1.00 mg/L (<8.01); CO2 Carbon Dioxide 26 mmol/L (22-32); Calcium 9.2 mg/dL (8.6-10.3); Chloride 100 mmol/L (101-111); Creatine Kinase 67 U/L (10-223); EGFR African American 105.1 (>60); EGFR Non-African American 86.8 (>60); Globulin 3.1 g/dL (2-4); Glucose 94 mg/dL (70-100); Magnesium 1.8 mg/dL (1.9-2.7); Potassium 4.3 mmol/L (3.5-5.0); Sodium 134 mmol/L (135-145); Total Protein 6.8 g/dL (6.4-8.9)
[2019-04-30] MEDS: NS 0.9% 1000 ML** 2,000 ML IV ONE ×2 (20:27→22:03)
[2019-04-30 20:31] LABS: TSH (Thyroid Stimulating Horm) 2.22 mcIU/mL (0.34-5.60)
[2019-04-30 23:02] LABS: Urine Appearance Cloudy; Urine Bacteria 1+ (Absent); Urine Bilirubin Negative (Negative); Urine Blood 1+ (Negative); Urine Color Yellow; Urine Glucose Negative (Negative); Urine Ketones 1+ (Negative); Urine Nitrite Negative (Negative); Urine Protein Negative (Negative); Urine Red Blood Cell 2+(6-10/hpf) (Absent); Urine Specific Gravity 1.016 (1.010-1.030); Urine Squamous Epithelial Cell Present (Absent); Urine Urobilinogen Negative (Negative); Urine White Blood Cell 3+(>20/hpf) (Absent)
[2019-04-30 23:41] VITALS: BP 154/80
--- NOTE | 2019-05-03 14:49 | PN ---
Progress Note - Progress Note Date of Service: 04/30/19 Note: Urine culture growing >100k e. coli. Pt. called ER yesterday inquiring about urine culture which was preliminary at that time. I started her on Cipro based on prior culture and cipro is susceptible to current culture.
== END 2019-04-30 22:45 | disposition home or self-care (01) ==
LOC: ED 17:49
DX: K52.9 Noninfective gastroenteritis and colitis, unspecified (principal); B96.20 Unspecified Escherichia coli [E. coli] as the cause of diseases classified elsewhere; I44.7 Left bundle-branch block, unspecified; R35.0 Frequency of micturition; R11.0 Nausea; R63.4 Abnormal weight loss; E07.9 Disorder of thyroid, unspecified
CPT/HCPCS: 36415; 80053; 81003; 81015; 82550; 83605; 83735; 83880; 84443; 84484; 85025; 85610; 86140; 87077; 87086; 87186; 93005; 96360; 96361; 99283